=== PATIENT | female | born 1935 | race Caucasian/White ===

== ENCOUNTER → 2016-12-02 | Outpatient (CLI) | payer MEDICARE, BC ==
--- NOTE | 2016-12-02 11:05 | MM ---
Reason for exam: additional evaluation requested from prior study. Last mammogram was performed 1 year ago. History: Patient is postmenopausal, has history of other cancer at age 78, and has history of breast cancer at age 77. Mastectomy of the right breast, May 24, 2013. Malignant right mammotome panel of the right breast, May 15, 2013. Taking antineoplastic for 4 years beginning at age 77. Physical Findings: Nurse did not find any significant physical abnormalities on exam. MG 3D Diag Mammo W/Cad LT CC and MLO view(s) were taken of the left breast. Prior study comparison: November 24, 2015, left breast MG 3d diag mammo w/cad LT. November 18, 2014, left breast MG diagnostic mammo LT w CAD. There are scattered fibroglandular densities. Finding: There are typically benign calcifications in the left breast. No significant changes in finding since November 24, 2015 and November 18, 2014. These results were verbally communicated with the patient and result sheet given to the patient on 12/02/16. ASSESSMENT: Benign, BI-RAD 2 RECOMMENDATION: Follow-up diagnostic mammogram of the left breast in 1 year.
== END | disposition home or self-care (01) ==
LOC: RADMAMWWP 10:12
PROVIDERS: ATTEND Surgery
DX: Z08 Encounter for follow-up examination after completed treatment for malignant neoplasm (principal); Z85.3 Personal history of malignant neoplasm of breast
CPT/HCPCS: G0206; G0279

== ENCOUNTER → 2017-05-29 | Outpatient (CLI) | payer MEDICARE, BC ==
--- NOTE | 2017-05-29 16:24 | BD ---
EXAMINATION TYPE: MG DEXA axial skeleton. DATE OF EXAM: 05/29/2017 CLINICAL HISTORY: 81-year-old female osteopenia and history of breast cancer Height: 66.50 Weight: 255 FRAX RISK QUESTIONS: Alcohol (3 or more units per day): no Family History (Parent hip fracture): no Glucocorticoids (More than 3mos): no (Ex: prednisone, prednisolone, methylprednisolone, dexamethasone, and hydrocortisone). History of Fracture in Adulthood: no Secondary Osteoporosis: 1. Type 1 Diabetes: no 2. Hyperthyroidism: no 3. Menopause before 45: no, age 48 4. Malnutrition: no 5. Chronic liver disease: no Rheumatoid Arthritis: no Current Tobacco Use: no RISK FACTORS HISTORY OF: Surgery to Spine: yes When: 1991; 3-4-5 lumbar region Family History of Osteoporosis: no Active: somewhat-uses walker Diet low in dairy products/other sources of calcium: no Postmenopausal woman: yes Take estrogen and/or progesterone medications: yes How long: antineoplastic over 4 years Lost more than 2 inches in height since high school: yes Frequent falls: no Poor Health: fair Hyperparathyroidism: no Adrenal Insufficiency: no MEDICATIONS: Prednisone or other steroids: no Thyroid Medications: yes Which medication: Mylan/Levothyroid How Long: about 20 years Osteoporosis Medications: no Additional Medications: Atenol, Simvastatin, amastrozole, aspirin, vitamin C, glucosamine, vit D, Ran tidine Additional History: Breast CA chemo; age 77; bladder CA, osteoarthritis, carpal tunnel surgery bot h wrists EXAM MEASUREMENTS: Bone mineral densitometry was performed using the [employer]. Bone mineral density NOT measured about the Lumbar spine due to previous back surgery Bone mineral density about the R hip (g/cm2): 0.918 Bone mineral density about the L hip (g/cm2): 0.956 T Score values are as follows: -----R Neck: -0.9 -----L Neck: -0.6 -----R Total: -1.0 -----L Total: -0.9 Bone mineral density has: Increased 1.4% since study of: 05/19/2015 IMPRESSION: Normal (Values between +1 and -1 indicate normal bone mass) as indicated by T score values in the hip s. Note that measurements border on osteopenia at both sides. Measurements not taken of the lumbar spine due to prior surgery. Consider repeating this study in 5 years or sooner if there is some new clinical indication. NOTE: T-SCORE=SD OF THE YOUNG ADULT MEAN.
== END | disposition home or self-care (01) ==
LOC: RADBDWWP 09:21
PROVIDERS: ATTEND Internal Medicine Hematology & Oncology
DX: M85.80 Other specified disorders of bone density and structure, unspecified site (principal); C50.411 Malignant neoplasm of upper-outer quadrant of right female breast; Z79.890 Hormone replacement therapy
CPT/HCPCS: 77080

== ENCOUNTER → 2017-06-15 | Outpatient (CLI) | payer MEDICARE, BC ==
--- NOTE | 2017-06-15 11:19 | FL ---
EXAMINATION TYPE: FL barium swallow DATE OF EXAM: 06/15/2017 CLINICAL HISTORY: Gastroesophageal reflux TECHNIQUE: A double contrast esophagram is performed utilizing air and barium. A total of 32 second s of fluoroscopic time was utilized during procedure. COMPARISON: None FINDINGS: Barium was swallowed into the esophagus without delay. Esophageal peristalsis and motility was normal. There is a small hiatal hernia and tertiary contractions of the distal esophagus. Mild ga stroesophageal reflux noted. Mild fold thickening at the level the GE junction. IMPRESSION: 1. No evidence of obstruction. Mild gastroesophageal reflux with dysmotility noted. There is mild fol d thickening of the distal esophagus which could be associated with mild esophagitis. Correlate with direct visualization as clinically warranted.
--- NOTE | 2017-06-15 11:41 | XR ---
EXAMINATION TYPE: XR chest 2V DATE OF EXAM: 06/15/2017 COMPARISON: 12/09/2015 HISTORY: History of breast cancer and osteopenia TECHNIQUE: Frontal and lateral views of the chest are obtained. FINDINGS: There is no focal air space opacity, pleural effusion, or pneumothorax seen. The cardiac silhouette size is within normal limits. The osseous structures are intact. Right breast surgical c lips are incidentally identified. Moderate degenerative changes of thoracic spine are seen. IMPRESSION: No acute cardiopulmonary process.
== END | disposition home or self-care (01) ==
LOC: RADFLMAIN 10:34
PROVIDERS: ATTEND Family Medicine
DX: K21.9 Gastro-esophageal reflux disease without esophagitis (principal); K22.8 Other specified diseases of esophagus; J41.0 Simple chronic bronchitis
CPT/HCPCS: 71046; 74220

== ENCOUNTER → 2017-12-04 | Outpatient (CLI) | payer MEDICARE, BC ==
--- NOTE | 2017-12-04 10:53 | MM ---
Reason for exam: additional evaluation requested from prior study. Last mammogram was performed 1 year ago. History: Patient is postmenopausal, has history of other cancer at age 78, and has history of breast cancer at age 77. Mastectomy of the right breast, May 24, 2013. Malignant right mammotome panel of the right breast, May 15, 2013. Taking antineoplastic for 4 years beginning at age 77. Physical Findings: Nurse did not find any significant physical abnormalities on exam. MG 3D Diag Mammo W/Cad LT CC and MLO view(s) were taken of the left breast. Prior study comparison: December 02, 2016, left breast MG 3d diag mammo w/cad LT. November 24, 2015, left breast MG 3d diag mammo w/cad LT. There are scattered fibroglandular densities. Benign calcifications. There is no discrete abnormality. No significant new findings when compared with previous films. These results were verbally communicated with the patient and result sheet given to the patient on 12/04/17. ASSESSMENT: Benign, BI-RAD 2 RECOMMENDATION: Follow-up diagnostic mammogram of the left breast in 1 year.
== END | disposition home or self-care (01) ==
LOC: RADMAMWWP 10:08
PROVIDERS: ATTEND Internal Medicine Hematology & Oncology
DX: Z08 Encounter for follow-up examination after completed treatment for malignant neoplasm (principal); Z85.3 Personal history of malignant neoplasm of breast
CPT/HCPCS: 77065; G0279; 77061

== ENCOUNTER → 2017-12-20 | Outpatient (CLI) | payer MEDICARE, BC ==
[~2017-12-20] MED LIST: REGADENOSON 0.4 MG/5 ML SYRINGE IV ONE
--- NOTE | 2017-12-20 10:55 | NM ---
EXAMINATION TYPE: NM stress lexiscan cardiolite DATE OF EXAM: 12/20/2017 COMPARISON: NONE HISTORY: Precordial chest pain and abnormal EKG. TECHNIQUE: After the intravenous administration of 10.08 mCi Tc 99m Sestamibi - Cardiolite resting S PECT images acquired 45 minutes post injection. The patient received 0.4mg Lexiscan, 23.4 mCi Tc 99m Sestamibi - Stress images obtained [address] injection FINDINGS: Review of stress and rest SPECT images demonstrates small area of decreased perfusion on stress imagi ng involving the anteroseptal wall. Stress-induced ischemia is not excluded. Fixed defect apical infe rior wall. Gated analysis shows normal wall motion with an estimated left ventricular ejection fracti on of 42 %. IMPRESSION: I cannot exclude a small area of stress-induced ischemia as discussed above.
--- NOTE | 2017-12-20 11:04 | EST ---
EXERCISE STRESS DATE OF SERVICE: 12/20/2017 AGE: 82 SEX: Female HT: 68" WT: 252 pounds PROTOCOL: Lexiscan Cardiolite STAGE: DURATION OF EXERCISE: HEART RATE REST: 59 BLOOD PRESSURE REST: 130/96 MAXIMUM HEART RATE ACHIEVED: 84 MAXIMUM BLOOD PRESSURE: 168/67 85% MPHR: 119 100% MPHR: 140 METS: INDICATIONS: Abnormal EKG. CLINICAL INFORMATION: Baseline EKG shows sinus rhythm with left bundle branch block. The patient was given intravenous Lexiscan as per protocol. Did not have chest pain or diagnostic ST-segment depression. CONCLUSIONS: 1. Inconclusive EKG part of the stress test due to left bundle branch block. 2. Cardiolite portion of the stress test will be reported separately. MMODL / IJN: [id number] /
== END | disposition home or self-care (01) ==
LOC: RADNMMAIN 07:47
PROVIDERS: ATTEND Internal Medicine Cardiovascular Disease
DX: I44.7 Left bundle-branch block, unspecified (principal); I25.110 Atherosclerotic heart disease of native coronary artery with unstable angina pectoris; I10 Essential (primary) hypertension; E78.2 Mixed hyperlipidemia
CPT/HCPCS: 93017; 78452; A9500; J2785

== ENCOUNTER → 2018-01-25 | Outpatient (CLI) | payer MEDICARE, BC ==
--- NOTE | 2018-01-26 08:41 | CT ---
EXAMINATION TYPE: CT urogram wo/w con DATE OF EXAM: 01/25/2018 COMPARISON: HISTORY: Follow up bladder cancer. CT DLP: 4094.4 mGycm Automated exposure control for dose reduction was used. CONTRAST: Performed with IV Contrast, patient injected with 80 mL of Isovue 370. FINDINGS: CT sections are within the posterior lung bases which are clear. Coronary artery calcifications prese nt. Vascular calcifications in the aorta Liver and spleen appear normal without masses or cysts. The pancreas is unremarkable. Adrenal glands are normal. Vascular calcifications within the abdominal aorta. Inferior vena cava is normal. Gallbla dder is surgically absent. Urostomy site is in the right lower quadrant. Loops of bowel without oral contrast appear unremarkable. Diverticular changes are noted within the s igmoid colon. Patient has had a cystectomy. Uterus and ovaries are not identified. No suspicious acut e osseous abnormality is evident. Sacroiliac joint degenerative changes are present. Facet degenerati ve changes are within the lumbar spine and disc bulging can be contributing to spinal canal stenosis at the L4-5 level and L3-4 level. Kidneys and the cortical phase appear normal without masses cysts or hydronephrosis. An extrarenal pe lvis is present on the left. Mild hydroureter is present. Delayed images were obtained through the kidneys and ureters. The ureters are prominent with contrast . Urostomy surgery on the bowel loop is evident. There is some tortuosity of the right ureter. The ur eters to the neobladder otherwise are unremarkable. No stenosis is evident. Three-D reconstructed images performed separately on the [employer] computer by the technologist are pres ented. IMPRESSION: 1. MILD PROMINENCE OF THE URETERS. NO STENOSIS OF THE URETERS IS EVIDENT. 2. NO SUSPICIOUS CHANGES TO SUGGEST METASTATIC URINARY BLADDER CANCER.
== END | disposition home or self-care (01) ==
LOC: RADCTMAIN 12:52
PROVIDERS: ATTEND Urology
DX: D49.4 Neoplasm of unspecified behavior of bladder (principal); Z90.6 Acquired absence of other parts of urinary tract
CPT/HCPCS: 82565; 84520; 74178; 36415; 74400; Q9967

== ENCOUNTER → 2018-04-26 | Outpatient (CLI) | payer MEDICARE, BC | LOC: LABWHC1 10:03 | PROVIDERS: ATTEND Urology | DX: N28.9 Disorder of kidney and ureter, unspecified (principal) | CPT/HCPCS: 36415; 82565; 84520 ==

== ENCOUNTER → 2018-05-10 | Outpatient (CLI) | payer MEDICARE, BC ==
--- NOTE | 2018-05-10 12:28 | CT ---
EXAMINATION TYPE: CT urogram wo/w con DATE OF EXAM: 05/10/2018 COMPARISON: 03/28/2017 HISTORY: 82 year-old female history of bladder cancer. Blood in urine bag improved after antibiotics. TECHNIQUE: Contiguous axial scanning of the abdomen and pelvis performed without and with IV Contrast , patient injected with 80 mL of Isovue 370. Delayed images through the kidneys and bladder were obta ined. Coronal/sagittal reconstructions performed. 3-D reconstructions generated on a dedicated [employer] workstation. CT DLP: 3585.7 mGycm Automated exposure control for dose reduction was used. FINDINGS: Heart normal size without pericardial effusion. Dense mitral annular calcifications are demonstrated. Small amount of retained fluid within the distal esophagus with a tiny hiatal hernia. Lung bases clear without pleural effusion. Ectatic lower descending thoracic aorta centimeters. Mild to moderate atherosclerotic calcifications infrarenal abdominal aorta without aneurysm. No focal liver lesion or biliary ductal dilatation. Portal venous system is patent. Cholecystectomy clips. Adrenal glands, spleen, atrophic pancreas show no gross abnormality. There is symmetric uptake and excretion of contrast from both kidneys without any suspicious renal le pranay. The bilateral renal collecting systems and ureters remain patulous. The proximal ureters are tortuous with a couple hairpin turns on the right and one on the left. At the left mid ureter, there is a 1.7 cm segment of relative caliber narrowing. At is right mid ureter, there is a 1.5 cm length of relative caliber narrowing. Both of these areas are depicted on the 3-D reconstructions. No obvious abnormal surrounding soft tis ramila thickening is identified. A mid anterior lower abdominal ileal conduit is demonstrated with a right lower quadrant urostomy. Sm all parastomal hernia measuring 5.6 cm wide, unchanged, containing a nonobstructed ileal loop of the urostomy. At the right ureteral anastomosis, there may be mild narrowing, refer to series 26 image 40. Contrast partially opacifies the anastomotic ileal loop. No dilated small bowel, free fluid, or free air. No mesenteric or retroperitoneal lymphadenopathy. Some nonspecific mildly prominent fluid-filled small bowel loops in the mid to lower abdomen. Mild stool burden. Mid to distal sigmoid diverticulosis. No pericolonic inflammatory change. Mildly patulous bilateral inguinal canals. Patient is status post cystectomy. No suspicious pelvic ma ss or pelvic lymphadenopathy seen. Evaluation of the renal collecting systems Bones: Degenerative changes at the pubic symphysis, hips, advanced degenerative changes throughout th e lumbar spine. Laminectomy change at L4-L5 and grade 1 anterolisthesis at L3-L4. 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 IMPRESSION: 1. STATUS POST CYSTECTOMY WITH MID LOWER ABDOMINAL ILEAL CONDUIT WITH RIGHT LOWER QUADRANT UROSTOMY R EDEMONSTRATED. 2. SIMILAR PATULOUS BILATERAL RENAL COLLECTING SYSTEMS AND BOTH URETERS WITH APPARENT MID URETERIC ST ENOSES FOR A LENGTH OF 1.5 and 1.7 CM ON THE RIGHT AND LEFT SIDES, RESPECTIVELY (WELL DEPICTED ON THE ROTATIONAL 3-D RECONSTRUCTIONS). THIS IS MORE PRONOUNCED COMPARED TO 01/25/2018. THE BILATERAL U RETERS BEYOND THE STENOSES ARE ALSO PATULOUS AND THERE MAY BE A MILD ANASTOMOTIC STENOSIS OF THE DIST AL RIGHT URETER (SERIES 26 IMAGE 40). NO SUSPICIOUS UROTHELIAL LESION OR FILLING DEFECT IDENTIFIED. 3. 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 4. MID TO DISTAL SIGMOID DIVERTICULOSIS. ADVANCED DEGENERATIVE CHANGES THROUGHOUT THE LUMBAR SPINE.
== END | disposition home or self-care (01) ==
LOC: RADCTMAIN 08:27
PROVIDERS: ATTEND Urology
DX: Z08 Encounter for follow-up examination after completed treatment for malignant neoplasm (principal); K57.30 Diverticulosis of large intestine without perforation or abscess without bleeding; K43.5 Parastomal hernia without obstruction or gangrene; Q62.10 Congenital occlusion of ureter, unspecified; R31.0 Gross hematuria; Z90.6 Acquired absence of other parts of urinary tract; Z93.6 Other artificial openings of urinary tract status; Z85.51 Personal history of malignant neoplasm of bladder
CPT/HCPCS: 74178; 36415; 74400; Q9967

== ENCOUNTER → 2018-12-11 | Outpatient (CLI) | payer MEDICARE, BC ==
--- NOTE | 2018-12-11 12:59 | MM ---
Reason for exam: additional evaluation requested from prior study. Last mammogram was performed 1 year ago. History: Patient is postmenopausal, has history of other cancer at age 78, and has history of breast cancer at age 77. Mastectomy of the right breast, May 24, 2013. Malignant right mammotome panel of the right breast, May 15, 2013. Taking antineoplastic for 4 years beginning at age 77. Physical Findings: Nurse Summary: 3cm nodule in axilla (nurse kp). MG 3D Diag Mammo W/Cad LT CC, MLO, and LM view(s) were taken of the left breast. Prior study comparison: December 04, 2017, left breast MG 3d diag mammo w/cad LT. December 02, 2016, left breast MG 3d diag mammo w/cad LT. The breast tissue is heterogeneously dense. This may lower the sensitivity of mammography. Benign appearing calcifications in the left breast. No suspicious abnormality. These results were verbally communicated with the patient and result sheet given to the patient on 12/11/18. ASSESSMENT: Incomplete: need additional imaging evaluation, BI-RAD 0 RECOMMENDATION: Ultrasound. (right axillary palpable)
--- NOTE | 2018-12-11 13:01 | USB ---
Reason for exam: additional evaluation requested from abnormal screening. History: Patient is postmenopausal, has history of other cancer at age 78, and has history of breast cancer at age 77. Mastectomy of the right breast, May 24, 2013. Malignant right mammotome panel of the right breast, May 15, 2013. Taking antineoplastic for 4 years beginning at age 77. US Breast Axilla RT ight axillary ultrasound demonstrates a 0.6 x 0.4 x 0.4cm mixed lesion at the axilla appears as a morphologically normal lymph node, precautionary 6 month follow up right axillary ultrasound. These results were verbally communicated with the patient and result sheet given to the patient on 12/11/18. ASSESSMENT: Probably benign, BI-RAD 3 RECOMMENDATION: Ultrasound of the right breast in 6 months.
== END ==
LOC: RADMAMWWP 10:55
PROVIDERS: ATTEND Internal Medicine Hematology & Oncology
DX: N63.10 Unspecified lump in the right breast, unspecified quadrant (principal); R92.8 Other abnormal and inconclusive findings on diagnostic imaging of breast; Z85.3 Personal history of malignant neoplasm of breast
CPT/HCPCS: 77065; 76642; G0279; 77061

== ENCOUNTER → 2019-08-27 | Outpatient (CLI) | payer MEDICARE, BC ==
--- NOTE | 2019-08-27 18:52 | BD ---
EXAMINATION TYPE: Axial Bone Density DATE OF EXAM: 08/27/2019 COMPARISON: NONE CLINICAL HISTORY: Height: 66 Weight: 238.0 FRAX RISK QUESTIONS: Alcohol (3 or more units per day): no Family History (Parent hip fracture): no Glucocorticoids (More than 3mos): no (Ex: prednisone, prednisolone, methylprednisolone, dexamethasone, and hydrocortisone). History of Fracture in Adulthood: no Secondary Osteoporosis: 1. Type 1 Diabetes: no 2. Hyperthyroidism: no 3. Menopause before 45: no 4. Malnutrition: no 5. Chronic liver disease: no Rheumatoid Arthritis: no Current Tobacco Use: no RISK FACTORS HISTORY OF: Surgery to Spine/Hip(right/left)/Wrist (right/left): lumbar spine When: 1991/ bilateral wrist -carpal tunnel surgery Family History of Osteoporosis: no Active: no Diet low in dairy products/other sources of calcium: no Postmenopausal woman: age 48 Lost more than 2 inches in height since high school: yes MEDICATIONS: atenolol, simvastatin, amastrozole, aspirin, vitamins Thyroid Medications: levothyroxine How Lon years Additional History: EXAM MEASUREMENTS: Bone mineral densitometry was performed using the [employer]. Bone mineral density about the R hip (g/cm2): 0.868 Bone mineral density about the L hip (g/cm2): 0.898 T Score values are as follows: -----R Neck: -1.2 -----L Neck: -1.0 -----R Total: -1.1 -----L Total: -1.2 Bone mineral density has: decreased -3.0 % since study of: 4. IMPRESSION: Osteopenia (T Score between -2.5 and -1). There is slightly increased risk of fracture and the patient may be considered for treatment. Re-Screen 2-5 years. NOTE: T-SCORE=SD OF THE YOUNG ADULT MEAN.
== END | disposition home or self-care (01) ==
LOC: RADBDWWP 10:28
PROVIDERS: ATTEND Internal Medicine Hematology & Oncology
DX: M85.80 Other specified disorders of bone density and structure, unspecified site (principal); C50.411 Malignant neoplasm of upper-outer quadrant of right female breast; Z79.890 Hormone replacement therapy
CPT/HCPCS: 77080

== ENCOUNTER → 2019-08-27 | Outpatient (CLI) | payer MEDICARE, BC ==
--- NOTE | 2019-08-27 12:20 | MM ---
Reason for exam: follow-up at short interval from prior study. Last mammogram was performed 9 months ago. History: Patient is postmenopausal, has history of other cancer at age 78, and has history of breast cancer at age 77. Mastectomy of the right breast, May 24, 2013. Malignant right mammotome panel of the right breast, May 15, 2013. Taking antineoplastic for 4 years beginning at age 77. Physical Findings: Nurse Summary: 1 x 1.5cm right adenopathy (nurse ts). MG 3D Diag Mammo W/Cad LT CC and MLO view(s) were taken of the left breast. Prior study comparison: December 11, 2018, left breast MG 3d diag mammo w/cad LT. December 04, 2017, left breast MG 3d diag mammo w/cad LT. The breast tissue is heterogeneously dense. This may lower the sensitivity of mammography. No significant new findings when compared with previous films. These results were verbally communicated with the patient and result sheet given to the patient on 08/27/19. ASSESSMENT: Benign, BI-RAD 2 RECOMMENDATION: Follow-up diagnostic mammogram of the left breast in 1 year.
--- NOTE | 2019-08-27 12:22 | USB ---
Reason for exam: follow-up at short interval from prior study. History: Patient is postmenopausal, has history of other cancer at age 78, and has history of breast cancer at age 77. Mastectomy of the right breast, May 24, 2013. Malignant right mammotome panel of the right breast, May 15, 2013. Taking antineoplastic for 4 years beginning at age 77. US Breast Axilla RT Right limited breast ultrasound including focal area of concern, retroareolar and axilla demonstrates a 4 x 5 x 4mm mixed hypoechoic area, stable in size at the axilla BB. These results were verbally communicated with the patient and result sheet given to the patient on 08/27/19. ASSESSMENT: Probably benign, BI-RAD 3 RECOMMENDATION: Ultrasound of the right breast in 3 months. (Axilla 3-6 months. Consider PET/CT)
== END | disposition home or self-care (01) ==
LOC: RADMAMWWP 10:32
PROVIDERS: ATTEND Internal Medicine Hematology & Oncology
DX: Z08 Encounter for follow-up examination after completed treatment for malignant neoplasm (principal); Z85.3 Personal history of malignant neoplasm of breast
CPT/HCPCS: 77065; 76642; G0279; 77061

== ENCOUNTER 2019-09-21 14:59 | Observation (INO) | payer MEDICARE, BC ==
[2019-09-21] MEDS ORDERED: SODIUM CHLORIDE 0.9% 1,000 ML IV STA (15:01)
--- NOTE | 2019-09-21 15:02 | ED ---
Syncope HPI - General Stated Complaint: Syncope Time Seen by Provider: 09/21/19 15:01 Source: RN notes reviewed, old records reviewed Limitations: no limitations - History of Present Illness Initial Comments: This is an 82-year-old female DF for weakness and a syncopal event today. Patient herself is feels weak is able to ambulate with feels fatigued feels like she a pass out change of position no recent nausea vomiting or diarrhea no headache chest pain no shortness of breath or abdominal pain MD Complaint: loss of consciousness -: hour(s) Prodromal Symptoms: none -: second(s) Witnessed: no Injuries Sustained Associated with Event: None Current Symptoms: back to baseline, weakness History: previous syncopal episode Context: during exertion Treatments Prior to Arrival: none - Related Data Home Medications Medication Instructions Recorded Confirmed Ascorbic Acid [Vitamin C] 500 mg PO DAILY 07/30/13 07/31/13 Aspirin 325 mg PO DAILY 07/30/13 07/31/13 Bisoprolol-Hctz 10-6.25 mg [Ziac 1 each PO DAILY 07/30/13 07/31/13 10-6.25 MG] Calcium (Unknown Dose) 1,500 mg DAILY 07/30/13 07/31/13 Cholecalciferol [Vitamin D3] 1,000 unit PO BID 07/30/13 07/31/13 Fiber (Unknown Dose) 2 tab PO DAILY 07/30/13 07/31/13 Glucosamine(Unknown Dose) 1,500 mg DAILY 07/30/13 07/31/13 Levothyroid 0.075 mg DAILY 07/30/13 07/31/13 Omeprazole [PriLOSEC] 20 mg PO DAILY PRN 07/30/13 07/31/13 Simvastatin [Zocor] 40 mg PO HS 07/30/13 07/31/13 cloNIDine HCL [Catapres] 0.1 mg PO HS 07/30/13 07/31/13 Allergies Allergy/AdvReac Type Severity Reaction Status Date / Time No Known Allergies Allergy Verified 09/21/19 17:24 Review of Systems ROS Statement: Those systems with pertinent positive or pertinent negative responses have been documented in the HPI. ROS Other: All systems not noted in ROS Statement are negative. Past Medical History Past Medical History: Cancer, GERD/Reflux, Hyperlipidemia, Hypertension, Thyroid Disorder Additional Past Medical History / Comment(s): HEART MURMUR, H. PYLORI, CA BREAST AND BLADDER, RECEIVING CHEMOTHERAPY FOR BLADDER CANCER History of Any Multi-Drug Resistant Organisms: None Reported Past Surgical History: Bladder Surgery, Breast Surgery, Cholecystectomy, Joint Replacement, Orthopedic Surgery, Tonsillectomy Additional Past Surgical History / Comment(s): RT CARPAL TUNNEL, LEFT KNEE REPLACEMENT, ARTHROSCOPY RT KNEE, BACK SURGERY (3,4,5), BLADDER POLYPS, OVARY REMOVED, RT MASTECTOMY (MAY 2013) Additional Past Anesthesia/Blood Transfusion Reaction / Comment(s): "FACE HOT" Past Psychological History: No Psychological Hx Reported Past Alcohol Use History: None Reported Past Drug Use History: None Reported - Past Family History Father Family Medical History: Cancer Additional Family Medical History / Comment(s): COLON Mother Family Medical History: Cancer Additional Family Medical History / Comment(s): COLON AND KIDNEY CA General Exam General appearance: alert, in no apparent distress Head exam: Present: atraumatic, normocephalic, normal inspection Eye exam: Present: normal appearance, PERRL, EOMI. Absent: scleral icterus, conjunctival injection, periorbital swelling ENT exam: Present: normal exam, mucous membranes moist Neck exam: Present: normal inspection. Absent: tenderness, meningismus, lymphadenopathy Respiratory exam: Present: normal lung sounds bilaterally. Absent: respiratory distress, wheezes, rales, rhonchi, stridor Cardiovascular Exam: Present: regular rate, normal rhythm, normal heart sounds. Absent: systolic murmur, diastolic murmur, rubs, gallop, clicks GI/Abdominal exam: Present: soft, normal bowel sounds. Absent: distended, tenderness, guarding, rebound, rigid Extremities exam: Present: normal inspection, full ROM, normal capillary refill. Absent: tenderness, pedal edema, joint swelling, calf tenderness Back exam: Present: normal inspection Neurological exam: Present: alert, oriented X3, CN II-XII intact Psychiatric exam: Present: normal affect, normal mood Skin exam: Present: warm, dry, intact, normal color. Absent: rash Course Vital Signs 09/21/19 15:01 Temperature 97.9 F Pulse Rate 64 Respiratory 19 Rate Blood Pressure 153/81 O2 Sat by Pulse 98 Oximetry - Reevaluation(s) Reevaluation #1: 09/21/19 17:27 Medical records reviewed Reevaluation #2: 09/21/19 17:27 No recurrent syncope - Consultations Consultation #1: spoke with Dr. Fuchs agrees to admit this patient EKG Findings - EKG Comments: EKG Findings:: EKG shows sinus a vesicular pO2 52 QRS 170 QTC 47 Medical Decision Making - Medical Decision Making 84 female DF for evaluation patient to the ER for evaluation presents today for evaluation of weakness and syncope significant urinary tract infection patient to be admitted - Lab Data Result diagrams: 09/21/19 16:15 09/21/19 16:15 Lab Results 09/21/19 09/21/19 09/21/19 Range/Units 16:15 16:15 16:15 WBC 14.2 H (3.8-10.6) k/uL RBC 4.83 (3.80-5.40) m/uL Hgb 15.2 (11.4-16.0) gm/dL Hct 46.3 H (34.0-46.0) % MCV 95.8 (80.0-100.0) fL MCH 31.5 (25.0-35.0) pg MCHC 32.9 (31.0-37.0) g/dL RDW 12.6 (11.5-15.5) % Plt Count 221 (150-450) k/uL Neutrophils % 87 % Lymphocytes % 5 % Monocytes % 7 % Eosinophils % 1 % Basophils % 0 % Neutrophils # 12.2 H (1.3-7.7) k/uL Lymphocytes # 0.7 L (1.0-4.8) k/uL Monocytes # 1.0 (0-1.0) k/uL Eosinophils # 0.2 (0-0.7) k/uL Basophils # 0.0 (0-0.2) k/uL Sodium 131 L (137-145) mmol/L Potassium 4.7 (3.5-5.1) mmol/L Chloride 101 (98-107) mmol/L Carbon Dioxide 20 L (22-30) mmol/L Anion Gap 10 mmol/L BUN 25 H (7-17) mg/dL Creatinine 0.98 (0.52-1.04) mg/dL Est GFR (CKD-EPI)AfAm 62 (>60 ml/min/1.73 sqM) Est GFR (CKD-EPI)NonAf 54 (>60 ml/min/1.73 sqM) Glucose 120 H (74-99) mg/dL Calcium 10.0 (8.4-10.2) mg/dL Phosphorus 3.3 (2.5-4.5) mg/dL Magnesium 2.0 (1.6-2.3) mg/dL Total Bilirubin 1.1 (0.2-1.3) mg/dL AST 33 (14-36) U/L ALT 16 (4-34) U/L Alkaline Phosphatase 124 (38-126) U/L Creatine Kinase 51 (30-135) U/L Troponin I (0.000-0.034) ng/mL Total Protein 7.5 (6.3-8.2) g/dL Albumin 4.5 (3.5-5.0) g/dL Urine Color Yellow Urine Appearance Cloudy H (Clear) Urine pH 7.0 (5.0-8.0) Ur Specific [place] 1.014 (1.001-1.035) Urine Protein Trace H (Negative) Urine Glucose (UA) Negative (Negative) Urine Ketones Negative (Negative) Urine Blood Small H (Negative) Urine Nitrite Positive H (Negative) Urine Bilirubin Negative (Negative) Urine Urobilinogen <2.0 (<2.0) mg/dL Ur Leukocyte Esterase Large H (Negative) Urine RBC 12 H (0-5) /hpf Urine WBC 76 H (0-5) /hpf Amorphous Sediment Few H (None) /hpf Urine Bacteria Rare H (None) /hpf 09/21/19 Range/Units 16:15 WBC (3.8-10.6) k/uL RBC (3.80-5.40) m/uL Hgb (11.4-16.0) gm/dL Hct (34.0-46.0) % MCV (80.0-100.0) fL MCH (25.0-35.0) pg MCHC (31.0-37.0) g/dL RDW (11.5-15.5) % Plt Count (150-450) k/uL Neutrophils % % Lymphocytes % % Monocytes % % Eosinophils % % Basophils % % Neutrophils # (1.3-7.7) k/uL Lymphocytes # (1.0-4.8) k/uL Monocytes # (0-1.0) k/uL Eosinophils # (0-0.7) k/uL Basophils # (0-0.2) k/uL Sodium (137-145) mmol/L Potassium (3.5-5.1) mmol/L Chloride (98-107) mmol/L Carbon Dioxide (22-30) mmol/L Anion Gap mmol/L BUN (7-17) mg/dL Creatinine (0.52-1.04) mg/dL Est GFR (CKD-EPI)AfAm (>60 ml/min/1.73 sqM) Est GFR (CKD-EPI)NonAf (>60 ml/min/1.73 sqM) Glucose (74-99) mg/dL Calcium (8.4-10.2) mg/dL Phosphorus (2.5-4.5) mg/dL Magnesium (1.6-2.3) mg/dL Total Bilirubin (0.2-1.3) mg/dL AST (14-36) U/L ALT (4-34) U/L Alkaline Phosphatase (38-126) U/L Creatine Kinase (30-135) U/L Troponin I <0.012 (0.000-0.034) ng/mL Total Protein (6.3-8.2) g/dL Albumin (3.5-5.0) g/dL Urine Color Urine Appearance (Clear) Urine pH (5.0-8.0) Ur Specific [place] (1.001-1.035) Urine Protein (Negative) Urine Glucose (UA) (Negative) Urine Ketones (Negative) Urine Blood (Negative) Urine Nitrite (Negative) Urine Bilirubin (Negative) Urine Urobilinogen (<2.0) mg/dL Ur Leukocyte Esterase (Negative) Urine RBC (0-5) /hpf Urine WBC (0-5) /hpf Amorphous Sediment (None) /hpf Urine Bacteria (None) /hpf Disposition Clinical Impression: Syncope, Weakness, UTI (urinary tract infection), Dehydration Disposition: ADMITTED IP TO THIS HOSP Condition: Fair Is patient prescribed a controlled substance at d/c from ED?: No Referrals: Amanda Barahona MD [Primary Care Provider] - 1-2 days
[2019-09-21 16:36] LABS: Amorphous Sediment,Urine Few /hpf; Appearance,Urine Cloudy (Clear); Bacteria,Urine Rare /hpf; Bilirubin,Urine Negative (Negative); Blood,Urine Small (Negative); Color,Urine Yellow; Glucose,Urine (UA) Negative (Negative); Ketones,Urine Negative (Negative); Leukocyte Esterase,Urine Large (Negative); Nitrite,Urine Positive (Negative); Protein,Urine Trace (Negative); RBC,Urine 12 /hpf (0-5); Specific Gravity,Urine 1.014 (1.001-1.035); Urobilinogen,Urine <2.0 mg/dL (<2.0); WBC,Urine 76 /hpf (0-5)
[2019-09-21 16:47] LABS: Basophils % (A) 0 %; Eosinophils # (A) 0.2 k/uL (0-0.7); Eosinophils % (A) 1 %; HCT 46.3 % (34.0-46.0); HGB 15.2 gm/dL (11.4-16.0); Lymphocytes # (A) 0.7 k/uL (1.0-4.8); Lymphocytes % (A) 5 %; MCH 31.5 pg (25.0-35.0); MCHC 32.9 g/dL (31.0-37.0); MCV 95.8 fL (80.0-100.0); Mean Platelet Volume 9.2; Monocytes % (A) 7 %; Neutrophils # (A) 12.2 k/uL (1.3-7.7); Neutrophils % (A) 87 %; Platelet Count 221 k/uL (150-450); RBC 4.83 m/uL (3.80-5.40); RDW 12.6 % (11.5-15.5); WBC 14.2 k/uL (3.8-10.6)
[2019-09-21 16:49] LABS: Albumin 4.5 g/dL (3.5-5.0); Phosphorus 3.3 mg/dL (2.5-4.5); Potassium 4.7 mmol/L (3.5-5.1); Total Bilirubin 1.1 mg/dL (0.2-1.3); Total Protein 7.5 g/dL (6.3-8.2)
[2019-09-21] MEDS ORDERED: SODIUM CHLORIDE 0.9% 1,000 ML IV ONE (17:21)
[2019-09-21 17:36] LABS: INR 0.9 (<1.2)
[2019-09-21 17:37] LABS: D-Dimer 0.67 mg/L FEU (<0.60); Partial Thromboplastin Time 24.6 sec (22.0-30.0); Prothrombin Time 9.9 sec (9.0-12.0)
--- NOTE | 2019-09-21 19:08 | CT ---
EXAMINATION TYPE: CT angio chest DATE OF EXAM: 09/21/2019 COMPARISON: None HISTORY: Syncopal episode, elevated d-dimer. CT DLP: 448.8 mGycm Automated exposure control for dose reduction was used. CONTRAST: Performed with IV Contrast, patient injected with 80 mL of Isovue 370. There are 3-D post processed images. The lungs are clear of consolidation. There is no evidence of a pulmonary mass. There is no pleural e ffusion. There is no mediastinal adenopathy. There are no hilar masses. Thoracic aorta appears intact . The ascending aorta measures 3.7 cm. There is no aneurysm or dissection. Heart size is normal. Ther e is no pericardial effusion. There is normal contrast opacification of the pulmonary arteries. There are no filling defects. There is degenerative spurring throughout the thoracic spine. There is no compression fracture. IMPRESSION: No evidence of pulmonary embolism. Negative exam.
[2019-09-21] MEDS ORDERED: NITROGLYCERIN SL TABS 0.4 MG TAB SUBLINGUAL PRN (21:00)
[2019-09-21] MEDS ORDERED: atenoloL 50 MG TAB PO SCH (21:00)
[2019-09-21] MEDS: ATORVASTATIN 40 MG TAB PO SCH (22:34)
[2019-09-21] MEDS: CHOLECALCIFEROL 1,000 UNIT TAB PO SCH (22:34)
[2019-09-21] MEDS: ONDANSETRON 4 MG/2 ML VIAL IVP PRN (22:36)
[2019-09-22] MEDS: LEVOTHYROXINE 75 MCG TAB PO SCH (05:58)
[2019-09-22] MEDS: ONDANSETRON 4 MG/2 ML VIAL IVP PRN (05:58)
[2019-09-22] MEDS: PANTOPRAZOLE 40 MG TABLET PO SCH (06:57)
[2019-09-22] MEDS ORDERED: NON FORMULARY DRUG (Omega-3 Fatty Acids/Fish Oil [Fish Oil 1,000 Mg Softgel] 1 CAP) PO SCH (09:00)
[2019-09-22] MEDS: LOSARTAN 25 MG TAB PO SCH (09:14)
[2019-09-22] MEDS: ANASTROZOLE 1 MG TAB PO SCH (09:14)
[2019-09-22] MEDS: CHOLECALCIFEROL 1,000 UNIT TAB PO SCH ×2 (09:14→21:38)
[2019-09-22] MEDS: ASPIRIN 81 MG PO SCH (09:14)
[2019-09-22] MEDS: ASCORBIC ACID 500 MG TAB PO SCH (09:14)
--- NOTE | 2019-09-22 10:23 | P.HPIM ---
History of Present Illness H&P Date: 09/22/19 Oxana Barros, is an 84-year-old female patient of Dr. Barahona, who presented to [facility] emergency room with a chief complaint of weakness and a syncopal episode patient stated that she went to a social function with her she drove the car for about 25 miles while sitting at the function she felt warm and week subsequently she lost consciousness, she regained consciousness spontaneously, she was told that she was out for about 5 minutes, patient was brought in to emergency room for evaluation and treatment. In the emergency room temperature was normal at 97.9 pulse 64 respiration 19 and blood pressure 153/81 and pulse ox 98% on room air, EKG revealed normal sinus rhythm with first-degree AV block and left bundle branch block, white blood count was elevated at 14.2 sodium was slightly low at 131 d-dimer was elevated at 0.67 CT angiogram of the chest was done and was negative for pulmonary embolism, urine analysis revealed evidence of urinary tract infection, patient was started on IV antibiotics Rocephin and was admitted to medical floor with telemetry for further evaluation and treatment. Patient has a known history of breast cancer with history of mastectomy and chemotherapy she also has history of bladder cancer with urostomy placement in 2013 she is followed by Dr. Hi and Dr. Woodward. Patient also has a known history of hypertension, hyperlipidemia, hypothyroidism, and history of osteopenia. On review of systems patient was seen and examined on the medical floor on 09/22/2019 she is alert and oriented 3 in no apparent distress she is compl aining of nausea she had 1 episode of vomiting during the night time otherwise she denies any complaints there is no fever or chills no headache or dizziness no chest pain no shortness of breath no cough no abdominal pain no diarrhea no blood in the stools no blood in the urine. Patient also denies any weakness or numbness in any of her extremities there is no change in her vision speech or gait. Past Medical History Past Medical History: Cancer, GERD/Reflux, Hyperlipidemia, Hypertension, Thyroid Disorder Additional Past Medical History / Comment(s): HEART MURMUR, H. PYLORI, CA BREAST AND BLADDER, RECEIVING CHEMOTHERAPY FOR BLADDER CANCER History of Any Multi-Drug Resistant Organisms: None Reported Past Surgical History: Bladder Surgery, Breast Surgery, Cholecystectomy, Heart Catheterization With Stent, Joint Replacement, Orthopedic Surgery, Tonsillectomy Additional Past Surgical History / Comment(s): RT CARPAL TUNNEL, LEFT KNEE REPLACEMENT, ARTHROSCOPY RT KNEE, BACK SURGERY (3,4,5), BLADDER POLYPS, OVARY REMOVED, RT MASTECTOMY (MAY 2013) Cath- 3 stent, 2017 Past Anesthesia/Blood Transfusion Reactions: No Reported Reaction Additional Past Anesthesia/Blood Transfusion Reaction / Comment(s): "FACE HOT" Date of Last Stent Placement:: 12/2017 Past Psychological History: No Psychological Hx Reported Smoking Status: Never smoker Past Alcohol Use History: None Reported Past Drug Use History: None Reported - Past Family History Father Family Medical History: Cancer Additional Family Medical History / Comment(s): COLON Mother Family Medical History: Cancer Additional Family Medical History / Comment(s): COLON AND KIDNEY CA Medications and Allergies Home Medications Medication Instructions Recorded Confirmed Type Ascorbic Acid [Vitamin C] 500 mg PO DAILY 07/30/13 09/21/19 History Cholecalciferol [Vitamin D3] 1,000 unit PO BID 07/30/13 09/21/19 History Anastrozole [Arimidex] 1 mg PO DAILY 09/21/19 09/21/19 History Aspirin EC [Ecotrin Low Dose] 81 mg PO DAILY 09/21/19 09/21/19 History Atenolol [Tenormin] 50 mg PO HS 09/21/19 09/21/19 History Atorvastatin [Lipitor] 40 mg PO HS 09/21/19 09/21/19 History Levothyroxine Sodium [Synthroid] 75 mcg PO DAILY 09/21/19 09/21/19 History Losartan Potassium [Cozaar] 25 mg PO DAILY 09/21/19 09/21/19 History Multivitamin [Multivitamins Adult 3 tab PO DAILY 09/21/19 09/21/19 History Gummies] Nitroglycerin Sl Tabs [Nitrostat] 0.4 mg SUBLINGUAL Q5M PRN 09/21/19 09/21/19 History [place]-3 Fatty Acids/Fish Oil [Fish 1 cap PO DAILY 09/21/19 09/21/19 History Oil 1,000 mg Softgel] Omeprazole 40 mg PO DAILY 09/21/19 09/21/19 History calcium polycarbophiL [Fibercon] 625 mg PO BID 09/21/19 09/21/19 History Allergies Allergy/AdvReac Type Severity Reaction Status Date / Time No Known Allergies Allergy Verified 09/21/19 17:24 Physical Exam Vitals: Vital Signs Temp Pulse Pulse Resp BP BP BP 09/22/19 08:17 98.0 F 66 16 120/72 09/22/19 03:00 98.1 F 96 18 116/73 110/73 09/21/19 21:00 97.9 F 72 18 09/21/19 18:16 97.9 F 71 16 171/90 09/21/19 17:40 97.9 F 72 18 09/21/19 15:01 97.9 F 64 19 153/81 BP BP Pulse Ox 09/22/19 08:17 95 09/22/19 03:00 116/77 94/63 96 09/21/19 21:00 162/89 99 09/21/19 18:16 99 09/21/19 17:40 162/89 99 09/21/19 15:01 98 Intake and Output 09/21/19 09/22/19 09/22/19 22:59 06:59 14:59 Intake Total 100 Output Total 400 Balance -400 100 Intake: Intake, IV Titration 100 Amount Sodium Chloride 0.9% 1, 100 000 ml @ 100 mls/hr IV . Q10H ONE Rx#:[id number] Output: Urine 400 Other: Voiding Method Ileal Conduit (Right) Ileal Conduit (Right) Weight 99.79 kg In general patient is alert and oriented 3 in no apparent distress HEENT head normocephalic and atraumatic Neck is supple no JVD no goiter no lymphadenopathy Chest exam reveals a few scattered crackles no wheezing Abdomen is soft nontender no organomegaly with normal bowel sounds Extremity exam reveals no edema no cyanosis or clubbing Neurological examination reveals no gross focal deficit Results CBC & Chem 7: 09/21/19 16:15 09/21/19 16:15 Labs: Abnormal Lab Results - Last 24 Hours (Table) 09/21/19 09/21/19 09/21/19 Range/Units 16:15 16:15 16:15 WBC 14.2 H (3.8-10.6) k/uL Hct 46.3 H (34.0-46.0) % Neutrophils # 12.2 H (1.3-7.7) k/uL Lymphocytes # 0.7 L (1.0-4.8) k/uL D-Dimer (<0.60) mg/L FEU Sodium 131 L (137-145) mmol/L Carbon Dioxide 20 L (22-30) mmol/L BUN 25 H (7-17) mg/dL Glucose 120 H (74-99) mg/dL Urine Appearance Cloudy H (Clear) Urine Protein Trace H (Negative) Urine Blood Small H (Negative) Urine Nitrite Positive H (Negative) Ur Leukocyte Esterase Large H (Negative) Urine RBC 12 H (0-5) /hpf Urine WBC 76 H (0-5) /hpf Amorphous Sediment Few H (None) /hpf Urine Bacteria Rare H (None) /hpf 09/21/19 Range/Units 16:50 WBC (3.8-10.6) k/uL Hct (34.0-46.0) % Neutrophils # (1.3-7.7) k/uL Lymphocytes # (1.0-4.8) k/uL D-Dimer 0.67 H (<0.60) mg/L FEU Sodium (137-145) mmol/L Carbon Dioxide (22-30) mmol/L BUN (7-17) mg/dL Glucose (74-99) mg/dL Urine Appearance (Clear) Urine Protein (Negative) Urine Blood (Negative) Urine Nitrite (Negative) Ur Leukocyte Esterase (Negative) Urine RBC (0-5) /hpf Urine WBC (0-5) /hpf Amorphous Sediment (None) /hpf Urine Bacteria (None) /hpf Microbiology - Last 24 Hours (Table) 09/21/19 16:15 Urine Culture - Preliminary Urine,Voided Thrombosis Risk Factor Assmnt - Choose All That Apply Any of the Below Risk Factors Present?: Yes Each Factor Represents 1 point: Obesity (BMI >25) Other Risk Factors: No Thrombosis Risk Factor Assessment Total Risk Factor Score: 1 Thrombosis Risk Factor Assessment Level: Low Risk Assessment and Plan Plan: 1. Urinary tract infection with sepsis as evidenced by leukocytosis 2. Syncopal episode, with loss of consciousness of 5 minutes duration 3. Underlying history of hypertension 4. Underlying history of hyperlipidemia 5. Underlying history of hypothyroidism, check TSH 6. Mild hyponatremia with sodium of 131 7. Elevated d-dimer, no evidence of pulmonary embolism on CT angiogram of the chest 8. Abnormal EKG with evidence of first-degree AV block and left bundle branch block At this time patient is admitted to medical floor with remote telemetry she was started on IV Rocephin and IV normal saline Will check computed tomography scan of the brain in regard to syncope Will check echocardiogram and carotid Doppler Will consult cardiology Will recheck labs in regard to hyponatremia and leukocytosis
[2019-09-22 10:56] LABS: Basophils % (A) 0 %; Eosinophils # (A) 0.1 k/uL (0-0.7); Eosinophils % (A) 1 %; HCT 44.2 % (34.0-46.0); HGB 13.7 gm/dL (11.4-16.0); Lymphocytes # (A) 0.6 k/uL (1.0-4.8); Lymphocytes % (A) 4 %; MCH 30.9 pg (25.0-35.0); MCHC 31.1 g/dL (31.0-37.0); MCV 99.2 fL (80.0-100.0); Mean Platelet Volume 7.8; Monocytes # (A) 1.2 k/uL (0-1.0); Monocytes % (A) 9 %; Neutrophils % (A) 84 %; Platelet Count 222 k/uL (150-450); RBC 4.45 m/uL (3.80-5.40); RDW 12.7 % (11.5-15.5); WBC 13.1 k/uL (3.8-10.6)
[2019-09-22 11:13] LABS: Albumin 3.6 g/dL (3.5-5.0); Calcium 8.9 mg/dL (8.4-10.2); Potassium 4.6 mmol/L (3.5-5.1); Total Bilirubin 1.4 mg/dL (0.2-1.3); Total Protein 6.1 g/dL (6.3-8.2)
--- NOTE | 2019-09-22 11:13 | P.CRDCN ---
History of Present Illness Consult date: 09/22/19 Chief complaint: Syncope History of present illness: This is a very pleasant 84-year-old female patient with a past medical history significant for coronary artery disease and prior coronary stenting performed at [facility] with unknown details at this point, hypertension, dyslipidemia, and history of breast cancer was admitted to the hospital with syncope. She was in her usual state of health where she was at a graduation green party sitting on her walker when suddenly she lost her consciousness for about 5 minutes. The episode was witnessed by her family. Before the episode she felt charter coordinator her face and also she further dizzy and lightheaded. It seems that the episode is cardiac related. Beside that no symptoms of chest pain or chest discomfort or shortness of breath. Subsequently the patient was admitted to the hospital for further evaluation. She was diagnosed here was UTI and she was started on antibiotic. The pressure has been marginally low. The heart rate has been marginally low. The patient is on atenolol at 50 mg by mouth daily. The EKG showed sinus rhythm with first-degree AV block and left bundle branch block. She underwent a d-dimer and that came in to be abnormal but subsequent CTA of the chest came in to be unremarkable. An echocardiogram is in process to be done. Otherwise the WBC is elevated, sodium was 131, and potassium is within normal limits. On physical examination, the patient does have quite significant systolic murmur at the right upper sternal border consistent with aortic stenos is. Past Medical History Past Medical History: Cancer, GERD/Reflux, Hyperlipidemia, Hypertension, Thyroid Disorder Additional Past Medical History / Comment(s): HEART MURMUR, H. PYLORI, CA BREAST AND BLADDER, RECEIVING CHEMOTHERAPY FOR BLADDER CANCER History of Any Multi-Drug Resistant Organisms: None Reported Past Surgical History: Bladder Surgery, Breast Surgery, Cholecystectomy, Heart Catheterization With Stent, Joint Replacement, Orthopedic Surgery, Tonsillectomy Additional Past Surgical History / Comment(s): RT CARPAL TUNNEL, LEFT KNEE REPLACEMENT, ARTHROSCOPY RT KNEE, BACK SURGERY (3,4,5), BLADDER POLYPS, OVARY REMOVED, RT MASTECTOMY (MAY 2013) Cath- 3 stent, 2017 Past Anesthesia/Blood Transfusion Reactions: No Reported Reaction Additional Past Anesthesia/Blood Transfusion Reaction / Comment(s): "FACE HOT" Date of Last Stent Placement:: 12/2017 Past Psychological History: No Psychological Hx Reported Smoking Status: Never smoker Past Alcohol Use History: None Reported Past Drug Use History: None Reported - Past Family History Father Family Medical History: Cancer Additional Family Medical History / Comment(s): COLON Mother Family Medical History: Cancer Additional Family Medical History / Comment(s): COLON AND KIDNEY CA Medications and Allergies Home Medications Medication Instructions Recorded Confirmed Type Ascorbic Acid [Vitamin C] 500 mg PO DAILY 07/30/13 09/21/19 History Cholecalciferol [Vitamin D3] 1,000 unit PO BID 07/30/13 09/21/19 History Anastrozole [Arimidex] 1 mg PO DAILY 09/21/19 09/21/19 History Aspirin EC [Ecotrin Low Dose] 81 mg PO DAILY 09/21/19 09/21/19 History Atenolol [Tenormin] 50 mg PO HS 09/21/19 09/21/19 History Atorvastatin [Lipitor] 40 mg PO HS 09/21/19 09/21/19 History Levothyroxine Sodium [Synthroid] 75 mcg PO DAILY 09/21/19 09/21/19 History Losartan Potassium [Cozaar] 25 mg PO DAILY 09/21/19 09/21/19 History Multivitamin [Multivitamins Adult 3 tab PO DAILY 09/21/19 09/21/19 History Gummies] Nitroglycerin Sl Tabs [Nitrostat] 0.4 mg SUBLINGUAL Q5M PRN 09/21/19 09/21/19 History [place]-3 Fatty Acids/Fish Oil [Fish 1 cap PO DAILY 09/21/19 09/21/19 History Oil 1,000 mg Softgel] Omeprazole 40 mg PO DAILY 09/21/19 09/21/19 History calcium polycarbophiL [Fibercon] 625 mg PO BID 09/21/19 09/21/19 History Allergies Allergy/AdvReac Type Severity Reaction Status Date / Time No Known Allergies Allergy Verified 09/21/19 17:24 Physical Exam Vitals: Vital Signs Temp Pulse Pulse Resp BP BP BP 09/22/19 08:17 98.0 F 66 16 120/72 09/22/19 03:00 98.1 F 96 18 116/73 110/73 09/21/19 21:00 97.9 F 72 18 09/21/19 18:16 97.9 F 71 16 171/90 09/21/19 17:40 97.9 F 72 18 09/21/19 15:01 97.9 F 64 19 153/81 BP BP Pulse Ox 09/22/19 08:17 95 09/22/19 03:00 116/77 94/63 96 09/21/19 21:00 162/89 99 09/21/19 18:16 99 09/21/19 17:40 162/89 99 09/21/19 15:01 98 Intake and Output 09/21/19 09/22/19 09/22/19 22:59 06:59 14:59 Intake Total 100 Output Total 400 Balance -400 100 Intake: Intake, IV Titration 100 Amount Sodium Chloride 0.9% 1, 100 000 ml @ 100 mls/hr IV . Q10H ONE Rx#:[id number] Output: Urine 400 Other: Voiding Method Ileal Conduit (Right) Ileal Conduit (Right) Weight 99.79 kg - Constitutional General appearance: no acute distress - Respiratory Respiratory: bilateral: CTA - Cardiovascular Rhythm: regular Heart sounds: normal: S1, S2 Abnormal Heart Sounds: systolic murmur Results 09/22/19 10:39 09/21/19 16:15 Cardiac Enzymes 09/21/19 09/21/19 Range/Units 16:15 16:15 AST 33 (14-36) U/L Troponin I <0.012 (0.000-0.034) ng/mL Coagulation 09/21/19 Range/Units 16:50 PT 9.9 (9.0-12.0) sec APTT 24.6 (22.0-30.0) sec CBC 09/21/19 09/22/19 Range/Units 16:15 10:39 WBC 14.2 H 13.1 H (3.8-10.6) k/uL RBC 4.83 4.45 (3.80-5.40) m/uL Hgb 15.2 13.7 (11.4-16.0) gm/dL Hct 46.3 H 44.2 (34.0-46.0) % Plt Count 221 222 (150-450) k/uL Comprehensive Metabolic Panel 09/21/19 Range/Units 16:15 Sodium 131 L (137-145) mmol/L Potassium 4.7 (3.5-5.1) mmol/L Chloride 101 (98-107) mmol/L Carbon Dioxide 20 L (22-30) mmol/L BUN 25 H (7-17) mg/dL Creatinine 0.98 (0.52-1.04) mg/dL Glucose 120 H (74-99) mg/dL Calcium 10.0 (8.4-10.2) mg/dL AST 33 (14-36) U/L ALT 16 (4-34) U/L Alkaline Phosphatase 124 (38-126) U/L Total Protein 7.5 (6.3-8.2) g/dL Albumin 4.5 (3.5-5.0) g/dL Current Medications Generic Name Dose Route Start Last Admin Trade Name Freq PRN Reason Stop Dose Admin Anastrozole 1 mg 09/22/19 09:00 09/22/19 09:14 Arimidex PO 1 mg DAILY ADARSH Administration Ascorbic Acid 500 mg 09/22/19 09:00 09/22/19 09:14 Vitamin C PO 500 mg DAILY ADARSH Administration Aspirin 81 mg 09/22/19 09:00 09/22/19 09:14 Aspirin PO 81 mg DAILY ADARSH Administration Atenolol 50 mg 09/21/19 21:00 09/21/19 22:34 Tenormin PO 50 mg HS ADARSH Administration Atorvastatin Calcium 40 mg 09/21/19 21:00 09/21/19 22:34 Lipitor PO 40 mg HS ADARSH Administration Calcium Polycarbophil 625 mg 09/21/19 21:00 09/22/19 09:14 Fibercon PO 625 mg BID ADARSH Administration Cholecalciferol 1,000 unit 09/21/19 21:00 09/22/19 09:14 Vitamin D3 (25 Mcg = 1000 Iu) PO 1,000 unit BID ADARSH Administration Ceftriaxone Sodium 1 gm/ 50 mls @ 100 mls/hr 09/22/19 16:00 Sodium Chloride IVPB Q24H [facility] Levothyroxine Sodium 75 mcg 09/22/19 06:30 09/22/19 05:58 Synthroid PO 75 mcg DAILY@0630 [facility] Administration Losartan Potassium 25 mg 09/22/19 09:00 09/22/19 09:14 Cozaar PO 25 mg DAILY ADARSH Administration Multivitamins 1 each 09/22/19 12:00 Theragran PO DAILY@1200 [facility] Nitroglycerin 0.4 mg 09/21/19 21:00 Nitrostat SUBLINGUAL Q5M PRN Chest Pain Ondansetron HCl 4 mg 09/21/19 21:03 09/22/19 05:58 Zofran IVP 4 mg Q6HR PRN Administration Nausea And Vomiting Pantoprazole Sodium 40 mg 09/22/19 07:30 09/22/19 06:57 Protonix PO Not Given AC-BRKFST [facility] Intake and Output 09/21/19 09/22/19 09/22/19 22:59 06:59 14:59 Intake Total 100 Output Total 400 Balance -400 100 Intake: Intake, IV Titration 100 Amount Sodium Chloride 0.9% 1, 100 000 ml @ 100 mls/hr IV . Q10H ONE Rx#:[id number] Output: Urine 400 Other: Voiding Method Ileal Conduit (Right) Ileal Conduit (Right) Weight 99.79 kg 09/22/19 10:39 09/21/19 16:15 Assessment and Plan Assessment: Assessment #1 urinary tract infection #2 syncope likely related to bradycardia #3 coronary artery disease and prior stenting #4 valvular heart disease #6 multiple comorbid conditions Plan #1 I recommended decreasing the dose of atenolol to 25 mg by mouth daily #2 monitor the heart rhythm and monitor for any bradycardia or sinus pauses #3 the patient benefit from an event monitor as an outpatient if no significant arrhythmia was noted during this admission #4 obtain an echocardiogram was Doppler #5 follow-up with the patient
[2019-09-22] MEDS ORDERED: MULTIVITAMINS, THERA 1 EACH TAB PO SCH (12:00)
--- NOTE | 2019-09-22 14:28 | US ---
EXAMINATION TYPE: US abdomen complete DATE OF EXAM: 09/22/2019 COMPARISON: CT 2017 CLINICAL HISTORY: vomiting. EXAM MEASUREMENTS: Liver Length: 15.1 cm Gallbladder Wall: Surgically absent CBD: 0.4 cm Spleen: 10.2 cm Right Kidney: 10.6 x 4.3 x 5.2 cm Left Kidney: 12.6 x 5.1 cm Pancreas: visualized portions wnl Liver: wnl Gallbladder: Surgically absent CBD: wnl Spleen: wnl Right Kidney: fluid in renal pelvis Left Kidney: No hydronephrosis or masses seen Upper IVC: wnl Abd Aorta: bifurcation not visualized due to bowel gas. IMPRESSION: Cholecystectomy. No dilated ducts. Negative exam.
--- NOTE | 2019-09-22 14:30 | US ---
EXAMINATION TYPE: US carotid duplex BILAT DATE OF EXAM: 09/22/2019 COMPARISON: NONE CLINICAL HISTORY: syncope. EXAM MEASUREMENTS: RIGHT: Peak Systolic Velocity (PSV) cm/sec ----- Right CCA: 77.9 ----- Right ICA: 157.4 ----- Right ECA: 96.9 ICA/CCA ratio: 2.0 RIGHT: End Diastole cm/sec ----- Right CCA: 14.2 ----- Right ICA: 25.4 ----- Right ECA: 0.0 LEFT: Peak Systolic Velocity (PSV) cm/sec ----- Left CCA: 83.2 ----- Left ICA: 97.7 ----- Left ECA: 108.3 ICA/CCA ratio: 1.2 LEFT: End Diastole cm/sec ----- Left CCA: 15.7 ----- Left ICA: 18.4 ----- Left ECA: 0.0 VERTEBRALS (direction of flow): Right Vertebral: Antegrade Left Vertebral: Antegrade Rhythm: Normal No significant stenosis seen. Mildly elevated right bulb velocities. Extensive shadowing plaque bilat erally, left greater than right. IMPRESSION: There is antegrade flow in the vertebral arteries. Extensive calcified plaque. Measurements in the ar ea of significant plaque is limited. Estimated stenosis is 50-70% in both internal carotid arteries. Criteria for Assigning % of Stenosis / Diameter reduction (Estimation based on the indirect measurements of the internal carotid artery velocities (ICA PSV). 1. Normal (no stenosis)=ICA PSV < 125 cm/s: ratio < 2.0: ICA EDV<40 cm/s. 2. Less than 50% stenosis=ICA PSV < 125 cm/s: ratio < 2.0: ICA EDV<40 cm/s. 3. 50 to 69% stenosis=ICA PSV of 125 to 230 cm/s: ration 2.0 ? 4.0: ICA EDV 40-100 cm/s. 4. Greater than 70% stenosis to near occlusion= ICA PSV > 230 cm/s: ratio > 4.0: ICA EDV > 100 cm/s. 5. Near occlusion= ICA PSV velocities may be low or undetectable: variable ratio and ICA EDV. 6. Total occlusion=unable to detect flow.
--- NOTE | 2019-09-22 15:02 | CT ---
EXAMINATION TYPE: CT brain wo con DATE OF EXAM: 09/22/2019 HISTORY: syncope CT DLP: 945.5 mGycm. Automated Exposure Control for Dose Reduction was Utilized. TECHNIQUE: CT scan of the head is performed without contrast. COMPARISON: None FINDINGS: There is no acute intracranial hemorrhage, midline shift, or mass effect identified. Patchy periventr icular white matter hypodensities likely sequela of chronic microvascular ischemic change. The ventricles, sulci, and cisterns are normal in size and configuration. No extra-axial fluid collection. No depressed calvarial fracture. The globes are grossly symmetric. V isualized sinuses and mastoid air cells are clear. IMPRESSION: No acute intracranial hemorrhage, midline shift, or mass effect.
--- NOTE | 2019-09-22 15:13 | ECHOF ---
Referral Reason: MEASUREMENTS -------- HEIGHT: 172.7 cm WEIGHT: 99.8 kg BP: 120/72 RVIDd: 3.6 cm (< 3.3) IVSd: 1.6 cm (0.6 - 1.1) LVIDd: 3.7 cm (3.9 - 5.3) LVPWd: 1.4 cm (0.6 - 1.1) IVSs: 1.9 cm LVIDs: 2.4 cm LVPWs: 1.7 cm LAESV Index (A-L): 35.37 ml/m Ao Diam: 3.3 cm (2.0 - 3.7) AV Cusp: 1.4 cm (1.5 - 2.6) MV EXCURSION: 12.495 mm (> 18.000) MV EF SLOPE: 32 mm/s (70 - 150) EPSS: 0.5 cm MV E Bernard: 0.81 m/s MV DecT: 257 ms MV A Bernard: 1.21 m/s MV E/A Ratio: 0.67 AV maxP.01 mmHg AV meanP.80 mmHg RAP: 5.00 mmHg RVSP: 33.65 mmHg FINDINGS -------- Sinus rhythm. This was a technically adequate study. The left ventricular size is normal. There is moderate concentric left ventricular hypertrophy. O verall left ventricular systolic function is normal with, an EF between 55 - 60 %. The diastolic fi lling pattern is normal for the age of the patient {E/E'}. The right ventricle is mild to moderately enlarged. LA is moderately dilated 34-39 ml/m2 The right atrium is moderately enlarged. Interatrial and interventricular septum intact. There is no evidence of aortic regurgitation. Moderate aortic stenosis with peak/mean pressure grad ient of 31.01mmHg / 19.80mmHg, the aortic valve area by continuity equation is 1.3cm. Peak/mean gr adient across the Aortic Valve is 31.01mmHg / 19.80mmHg. Moderate mitral annular calcification present. Mild mitral regurgitation is present. Mild tricuspid regurgitation present. There is borderline pulmonary hypertension. The right ventr icular systolic pressure, as measured by Doppler, is 33.65mmHg. There is no pulmonic regurgitation present. The aortic root size is normal. Normal inferior vena cava with normal inspiratory collapse consistent with estimated right atrial pre ssure of 5 mmHg. There is no pericardial effusion. CONCLUSIONS -------- 1. The left ventricular size is normal. 2. There is moderate concentric left ventricular hypertrophy. 3. Overall left ventricular systolic function is normal with, an EF between 55 - 60 %. 4. The diastolic filling pattern is normal for the age of the patient {E/E'} 5. The right ventricle is mild to moderately enlarged. 6. LA is moderately dilated 34-39 ml/m2 7. The right atrium is moderately enlarged. 8. Moderate aortic stenosis with peak/mean pressure gradient of 31.01mmHg / 19.80mmHg, the aortic nicolas ve area by continuity equation is 1.3cm. 9. Peak/mean gradient across the Aortic Valve is 31.01mmHg / 19.80mmHg. 10. Moderate mitral annular calcification present. 11. Mild mitral regurgitation is present. 12. Mild tricuspid regurgitation present. 13. There is borderline pulmonary hypertension. 14. The right ventricular systolic pressure, as measured by Doppler, is 33.65mmHg. FACILITIES MANAGEMENT EXECUTIVE: Thao Lowery RDCS
[2019-09-22] MEDS ORDERED: atenoloL 25 MG TAB PO SCH (21:00)
[2019-09-22 21:33] VITALS: RESP 18
[2019-09-22] MEDS: ATORVASTATIN 40 MG TAB PO SCH (21:39)
[2019-09-23] MEDS: PANTOPRAZOLE 40 MG TABLET PO SCH (06:14)
[2019-09-23] MEDS: LEVOTHYROXINE 75 MCG TAB PO SCH (06:14)
[2019-09-23 06:22] LABS: Basophils # (A) 0.1 k/uL (0-0.2); Basophils % (A) 1 %; Eosinophils # (A) 0.3 k/uL (0-0.7); Eosinophils % (A) 3 %; HCT 40.4 % (34.0-46.0); HGB 13.1 gm/dL (11.4-16.0); Lymphocytes # (A) 1.3 k/uL (1.0-4.8); Lymphocytes % (A) 16 %; MCH 31.2 pg (25.0-35.0); MCHC 32.4 g/dL (31.0-37.0); MCV 96.2 fL (80.0-100.0); Mean Platelet Volume 7.8; Monocytes # (A) 0.6 k/uL (0-1.0); Monocytes % (A) 8 %; Neutrophils # (A) 5.5 k/uL (1.3-7.7); Neutrophils % (A) 70 %; Platelet Count 217 k/uL (150-450); WBC 7.8 k/uL (3.8-10.6)
[2019-09-23 06:39] LABS: Albumin 3.5 g/dL (3.5-5.0); Calcium 9.2 mg/dL (8.4-10.2); Potassium 4.4 mmol/L (3.5-5.1); Total Protein 5.9 g/dL (6.3-8.2)
[2019-09-23] MEDS: LOSARTAN 25 MG TAB PO SCH (09:13)
[2019-09-23] MEDS: ASCORBIC ACID 500 MG TAB PO SCH (09:13)
[2019-09-23] MEDS: CHOLECALCIFEROL 1,000 UNIT TAB PO SCH (09:13)
[2019-09-23] MEDS: ASPIRIN 81 MG PO SCH (09:13)
[2019-09-23] MEDS: ANASTROZOLE 1 MG TAB PO SCH (09:28)
[2019-09-23] MEDS ORDERED: DOBUTamine DRIP for NUC MED 500 MG in DEXTROSE/WATER 1 250ML.BAG IV ONE (09:45)
[2019-09-23 13:26] VITALS: BP 127/75; PULSE 56; TEMP 97.9
--- NOTE | 2019-09-23 13:30 | ECHOS ---
STRESS ECHOCARDIOGRAM LUMASON: Vial INDICATIONS: Chest pain, syncope. MEDICATIONS: BASELINE HEART RATE: 63 BASELINE BLOOD PRESSURE: 156/75 MAXIMUM HEART RATE: 119 MAXIMUM BLOOD PRESSURE: 139/78 85% MPHR: 117 100% MPHR: 138 METS: MAXIMUM STAGE REACHED: TOTAL EXERCISE TIME: CLINICAL INFORMATION: Baseline EKG shows sinus rhythm with left bundle branch block. Patient was given intravenous dobutamine over a period of 10 minutes as per protocol, achieving 86% of predicted maximal heart rate without chest pain. EKG changes are inconclusive secondary to left bundle branch block. Baseline echo was technically suboptimal secondary to poor echo windows. Patient was given Lumason to enhance endocardial visualization. LV function and wall motion were normal. Post dobutamine infusion, there is normal hyperdynamic response of all segments of myocardium noted. CONCLUSION: 1. Inconclusive EKG part of the stress test due to left bundle branch block. 2. Negative contrast dobutamine stress echo. MMODL / IJN: [id number] /
--- NOTE | 2019-09-23 19:57 | P.DS ---
Providers Date of admission: 09/21/19 17:21 Expected date of discharge: 09/23/19 Attending physician: Deepa Overton Consults: 09/22/19 10:29 Consult Physician Routine Consulting Provider: Patricia Morales Consult Reason/Comments: syncope Do you want consulting provider notified?: Yes Primary care physician: Amanda Barahona [facility] Course: Diagnosis on discharge: 1. Urinary tract infection with sepsis as evidenced by leukocytosis 2. Syncopal episode, with loss of consciousness of 5 minutes duration 3. Underlying history of hypertension 4. Underlying history of hyperlipidemia 5. Underlying history of hypothyroidism, check TSH 6. Mild hyponatremia with sodium of 131 7. Elevated d-dimer, no evidence of pulmonary embolism on CT angiogram of the chest 8. Abnormal EKG with evidence of first-degree AV block and left bundle branch block Hospital course: Oxana Barros, is an 84-year-old female patient of Dr. Barahona, who presented to [facility] emergency room with a chief complaint of weakness and a syncopal episode patient stated that she went to a social function with her she drove the car for about 25 miles while sitting at the function she felt warm and week subsequently she lost consciousness, she regained consciousness spontaneously, she was told that she was out for about 5 minutes, patient was brought in to emergency room for evaluation and treatment. In the emergency room temperature was normal at 97.9 pulse 64 respiration 19 and blood pressure 153/81 and pulse ox 98% on room air, EKG revealed normal sinus rhythm with first-degree AV block and left bundle branch block, white blood count was elevated at 14.2 sodium was slightly low at 131 d-dimer was elevated at 0.67 CT angiogram of the chest was done and was negative for pulmonary embolism, urine analysis revealed evidence of urinary tract infection, patient was started on IV antibiotics Rocephin and was admitted to medical floor with telemetry for further evaluation and treatment. Patient has a known history of breast cancer with history of mastectomy and chemotherapy she also has history of bladder cancer with urostomy placement in 2013 she is followed by Dr. Lawson and Dr. Woodward. Patient also has a known history of hypertension, hyperlipidemia, hypothyroidism, and history of osteopenia. On review of systems patient was seen and examined on the medical floor on 09/22/2019 she is alert and oriented 3 in no apparent distress she is complaining of nausea she had 1 episode of vomiting during the night time otherwise she denies any complaints there is no fever or chills no headache or dizziness no chest pain no shortness of breath no cough no abdominal pain no diarrhea no blood in the stools no blood in the urine. Patient also denies any weakness or numbness in any of her extremities there is no change in her vision speech or gait. On 09/23/2019 patient was seen and examined on the medical floor she is alert and oriented 3 in no apparent distress there is no fever or chills no headache or dizziness no chest pain no shortness of breath no cough no nausea or vomiting no abdominal pain no diarrhea no burning with urination no frequency or urgency and no hematuria, patient was evaluated by cardiology and was cleared for discharge, echocardiogram revealed evidence of moderate aortic stenosis, and this should be followed closely as outpatient by primary care physician and cardiology, ejection fraction was normal, patient was given an oral antibiotic course for urinary tract infection and was discharged home Patient Condition at Discharge: Fair Plan - Discharge Summary Discharge Rx Participant: No New Discharge Prescriptions: New Cefuroxime Axetil [Ceftin] 500 mg PO BID 7 Days #14 tab Continue Ascorbic Acid [Vitamin C] 500 mg PO DAILY Cholecalciferol [Vitamin D3 (25 Mcg = 1000 Iu)] 1,000 unit PO BID Anastrozole [Arimidex] 1 mg PO DAILY Aspirin EC [Ecotrin Low Dose] 81 mg PO DAILY Atenolol [Tenormin] 50 mg PO HS Atorvastatin [Lipitor] 40 mg PO HS calcium polycarbophiL [Fibercon] 625 mg PO BID Levothyroxine Sodium [Synthroid] 75 mcg PO DAILY Losartan Potassium [Cozaar] 25 mg PO DAILY Multivitamin [Multivitamins Adult Gummies] 3 tab PO DAILY Nitroglycerin Sl Tabs [Nitrostat] 0.4 mg SUBLINGUAL Q5M PRN PRN Reason: Chest Pain [place]-3 Fatty Acids/Fish Oil [Fish Oil 1,000 mg Softgel] 1 cap PO DAILY Omeprazole 40 mg PO DAILY Discharge Medication List Ascorbic Acid [Vitamin C] 500 mg PO DAILY 07/30/13 [History] Cholecalciferol [Vitamin D3 (25 Mcg = 1000 Iu)] 1,000 unit PO BID 07/30/13 [History] Anastrozole [Arimidex] 1 mg PO DAILY 09/21/19 [History] Aspirin EC [Ecotrin Low Dose] 81 mg PO DAILY 09/21/19 [History] Atenolol [Tenormin] 50 mg PO HS 09/21/19 [History] Atorvastatin [Lipitor] 40 mg PO HS 09/21/19 [History] Levothyroxine Sodium [Synthroid] 75 mcg PO DAILY 09/21/19 [History] Losartan Potassium [Cozaar] 25 mg PO DAILY 09/21/19 [History] Multivitamin [Multivitamins Adult Gummies] 3 tab PO DAILY 09/21/19 [History] Nitroglycerin Sl Tabs [Nitrostat] 0.4 mg SUBLINGUAL Q5M PRN 09/21/19 [History] [place]-3 Fatty Acids/Fish Oil [Fish Oil 1,000 mg Softgel] 1 cap PO DAILY 09/21/19 [History] Omeprazole 40 mg PO DAILY 09/21/19 [History] calcium polycarbophiL [Fibercon] 625 mg PO BID 09/21/19 [History] Cefuroxime Axetil [Ceftin] 500 mg PO BID 7 Days #14 tab 09/23/19 [Rx] Follow up Appointment(s)/Referral(s): Amanda Barahona MD [Primary Care Provider] - 09/25/19 11:30 am
== END 2019-09-23 16:45 ==
LOC: EC 14:59 → 3NCARDOBS 17:21
PROVIDERS: ADMIT Internal Medicine; ATTEND Internal Medicine
DX: A41.9 Sepsis, unspecified organism (principal); R55 Syncope and collapse; E03.9 Hypothyroidism, unspecified; E78.5 Hyperlipidemia, unspecified; E86.0 Dehydration; E87.1 Hypo-osmolality and hyponatremia; I10 Essential (primary) hypertension; I25.10 Atherosclerotic heart disease of native coronary artery without angina pectoris; I35.0 Nonrheumatic aortic (valve) stenosis; I44.0 Atrioventricular block, first degree; I44.7 Left bundle-branch block, unspecified; M85.80 Other specified disorders of bone density and structure, unspecified site; N39.0 Urinary tract infection, site not specified; Z79.82 Long term (current) use of aspirin; Z79.890 Hormone replacement therapy; Z79.899 Other long term (current) drug therapy; Z80.51 Family history of malignant neoplasm of kidney; Z85.3 Personal history of malignant neoplasm of breast; Z85.51 Personal history of malignant neoplasm of bladder; Z90.11 Acquired absence of right breast and nipple; Z92.21 Personal history of antineoplastic chemotherapy; Z93.6 Other artificial openings of urinary tract status; Z95.5 Presence of coronary angioplasty implant and graft; Z96.652 Presence of left artificial knee joint
CPT/HCPCS: 96361 ×2; 96366 ×3; 96375; 96376; 96365; 99285; 36415; 93005; 93306; 85379; 80053 ×3; 82550; 83605 ×2; 83735; 84100; 84484; 85025 ×3; 85610; 85730; 87040; 87086; 87077; 87186; 76700; 93880; 70450; 71275; G0378 ×3; C8930; J1250; J2405 ×2; J0696 ×2; S0170 ×2; Q9950; Q9967; 81001; 93351

== ENCOUNTER → 2020-02-10 | Outpatient (CLI) | payer MEDICARE, BC ==
--- NOTE | 2020-02-10 14:20 | CT ---
EXAMINATION TYPE: CT abdomen pelvis w con DATE OF EXAM: 02/10/2020 COMPARISON: 05/10/2018 HISTORY: 84-year-old female C67.9 Bladder cancer TECHNIQUE: Contiguous axial scanning of the abdomen and pelvis following administration of 80 ml Isov ue 300 IV contrast. Delayed images through the kidneys and coronal/sagittal reconstructions performe d. CT DLP: 1744 mGycm Automated exposure control for dose reduction was used. FINDINGS: Heart upper limits of normal in size without pericardial effusion. Dense mitral annular calcification s and RCA coronary artery calcifications are present. Lung bases clear without pleural effusion. Small hiatal hernia. No focal liver lesion or biliary ductal dilatation. Cholecystectomy clips. Portal venous system is pa tent. Adrenal glands, spleen, and pancreas appear within normal limits. No focal renal lesion. Stable mild pelvicaliectasis with slightly patulous ureters. The previously me ntioned apparent narrowing of the mid to distal ureters, axial image 50 and axial image 47 on the rig ht and left sides, respectively, are unchanged. Status post bladder resection with ileal conduit at the level of the mid abdomen and right abdominal urostomy. No dilated small bowel, free fluid, or free air. No mesenteric or retroperitoneal lymphadenopathy. Mild to moderate stool. Sigmoid diverticulosis without pericolonic inflammatory change. No abnormal fluid collection pelvis or pelvic lymphadenopathy. Bones: Bilateral hamstrings tendinopathy. Osteitis pubis. Moderate degenerative change of both hips. 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 IMPRESSION: 1. REDEMONSTRATED DIVERTING UROSTOMY WITH ILEAL CONDUIT AFTER PREVIOUS BLADDER RESECTION. 2. THE PREVIOUSLY MENTIONED APPARENT NARROWING/MILD STENOSES OF THE MID TO DISTAL URETERS APPEARS UNC HANGED WITH STABLE MILD BILATERAL PELVICALIECTASIS. 3. NO SPECIFIC FINDINGS OF NEOPLASTIC RECURRENCE. 4. SIGMOID DIVERTICULOSIS WITHOUT ACUTE DIVERTICULITIS. SMALL HIATAL HERNIA.
== END | disposition home or self-care (01) ==
LOC: RADCTMAIN 09:23
PROVIDERS: ATTEND Urology
DX: N28.89 Other specified disorders of kidney and ureter (principal); K44.9 Diaphragmatic hernia without obstruction or gangrene; K57.30 Diverticulosis of large intestine without perforation or abscess without bleeding; C67.9 Malignant neoplasm of bladder, unspecified
CPT/HCPCS: 82565; 84520; 74177; 36415; Q9967

== ENCOUNTER → 2020-02-19 | Outpatient (CLI) | payer MEDICARE, BC ==
--- NOTE | 2020-02-20 10:46 | USB ---
Reason for exam: clinical finding. History: Patient is postmenopausal, has history of other cancer at age 78, and has history of breast cancer at age 77. Mastectomy of the right breast, May 24, 2013. Malignant right mammotome panel of the right breast, May 15, 2013. Taking antineoplastic for 4 years beginning at age 77. Physical Findings: Nurse did not find any significant physical abnormalities on exam. US Breast Axilla RT Right breast axilla ultrasound including focal area of concern, retroareolar and axilla demonstrates a 0.5 x 0.3 x 0.4cm oval, lobular, hypoechoic lesion at the axilla, stable from 12/11/18 and 08/27/19. These results were verbally communicated with the patient and result sheet given to the patient on 02/19/20. ASSESSMENT: Benign, BI-RAD 2 RECOMMENDATION: Routine screening mammogram of both breasts in 10 months. Back on schedule for November 2020.
== END | disposition home or self-care (01) ==
LOC: RADUSWWP 09:25
PROVIDERS: ATTEND Internal Medicine Hematology & Oncology
DX: Z08 Encounter for follow-up examination after completed treatment for malignant neoplasm (principal); Z85.3 Personal history of malignant neoplasm of breast

== ENCOUNTER → 2020-09-04 | Outpatient (CLI) | payer MEDICARE, BC ==
--- NOTE | 2020-09-04 15:37 | USB ---
Right axillary ultrasound INDICATION: Right palpable abnormality COMPARISON: 12/11/2018, 02/19/2020 FINDINGS: The right axilla was scanned with ultrasound. There is a likely cyst in the right axilla measuring 0. 4 x 0.3 x 0.5 cm which is not significantly changed November 2018. IMPRESSION: No sonographic evidence for malignancy. Left mammogram is recommended in 12 months. Patient is status post right mastectomy. BI-RADS 2, benign.
== END | disposition home or self-care (01) ==
LOC: RADMAMWWP 14:14
PROVIDERS: ATTEND Internal Medicine Hematology & Oncology
DX: R92.8 Other abnormal and inconclusive findings on diagnostic imaging of breast (principal); Z90.11 Acquired absence of right breast and nipple
CPT/HCPCS: 77065; 76642; G0279; 77061

== ENCOUNTER → 2021-09-06 | Outpatient (CLI) | payer MEDICARE, BC ==
--- NOTE | 2021-09-06 15:16 | MM ---
Reason for Exam: Additional evaluation requested from prior study. Last screening mammogram was performed 12 month(s) ago. Patient History: Menarche at age 15. First Full-Term at age 26. Left ovary removed at age 27. Right ovary removed at age 27. Hysterectomy at age 27. Postmenopausal. Breast cancer, right, age 77. Other cancer, age 78. Previous chemotherapy at age 78. 05/24/2013, Mastectomy on the Right side. 05/15/2013, Malignant Core Biopsy on the right side. Prior Study Comparison: 12/11/2018 Left Diagnostic Mammogram, [facility]. 08/27/2019 Left Diagnostic Mammogram, [facility]. 09/04/2020 Left Diagnostic Mammogram, [facility]. Tissue Density: Left: There are scattered fibroglandular densities. Findings: Analyzed By CAD. Pattern appears stable. Benign vascular calcification is present. There are some scattered benign-appearing calcifications. No significant interval change is evident. No suspicious spiculated or lobulated mass cluster microcalcifications or architectural distortion or other secondary signs of malignancy are radiographically apparent. Overall Assessment: Benign, BI-RAD 2 Management: Diagnostic Mammogram of the left breast in 1 year. A clinical breast exam by your physician is recommended on an annual basis and results should be correlated with mammographic findings. This exam should not preclude additional follow-up of suspicious palpable abnormalities. Results were given to the patient verbally at the time of exam. Electronically signed and approved by: Chu Blackwell D.O. Radiologis
--- NOTE | 2021-09-06 15:36 | USB ---
Reason for Exam: Clinical finding. Patient History: Menarche at age 15. First Full-Term at age 26. Left ovary removed at age 27. Right ovary removed at age 27. Hysterectomy at age 27. Postmenopausal. Breast cancer, right, age 77. Other cancer, age 78. Previous chemotherapy at age 78. 05/24/2013, Mastectomy on the Right side. 05/15/2013, Malignant Core Biopsy on the right side. Prior Study Comparison: 12/11/2018 Left Diagnostic Mammogram, [facility]. 08/27/2019 Left Diagnostic Mammogram, [facility]. 09/04/2020 Left Diagnostic Mammogram, [facility]. Findings: The axilla of the right breast was scanned. No suspicious solid areas within the right axilla are evident. There is a small cystlike structure with good through transmission and posterior wall enhancement measuring 0.5 x 0.5 x 0.2 cm. This was present previously no suspicious lymphadenopathy is evident.. Overall Assessment: Benign, BI-RAD 2 Management: Diagnostic Mammogram of the left breast in 1 year. A clinical breast exam by your physician is recommended on an annual basis and results should be correlated with mammographic findings. Electronically signed and approved by: Chu Blackwell D.O. Radiologis
== END | disposition home or self-care (01) ==
LOC: RADMAMWWP 14:18
PROVIDERS: ATTEND Family Medicine
DX: R92.8 Other abnormal and inconclusive findings on diagnostic imaging of breast (principal); Z78.0 Asymptomatic menopausal state; Z85.3 Personal history of malignant neoplasm of breast
CPT/HCPCS: 77065; 76642; G0279; 77061

== ENCOUNTER → 2022-09-14 | Outpatient (CLI) | payer MEDICARE, BC ==
--- NOTE | 2022-09-14 13:35 | MM ---
Reason for Exam: Hx of breast cancer, mastectomy. Last mammogram was performed 1 year(s) and 1 month(s) ago. Patient History: Menarche at age 15. First Full-Term at age 26. Left ovary removed at age 27. Right ovary removed at age 27. Hysterectomy at age 27. Postmenopausal. Breast cancer, right, age 77. Other cancer, age 78. Previous chemotherapy at age 78. 05/24/2013, Mastectomy on the Right side. 05/15/2013, Malignant Core Biopsy on the right side. Prior Study Comparison: 08/27/2019 Left Diagnostic Mammogram, [facility]. 09/04/2020 Left Diagnostic Mammogram, [facility]. 09/06/2021 Left MG 3D diag mammo w/cad , [facility]. Tissue Density: Left: There are scattered fibroglandular densities. Findings: Analyzed By CAD. No new suspicious mass or group of calcifications within the left breast. Benign vascular callus cages are present. Scattered benign-appearing calcifications again present. Overall Assessment: Benign, BI-RAD 2 Management: Screening Mammogram of the left breast in 1 year. A clinical breast exam by your physician is recommended on an annual basis and results should be correlated with mammographic findings. This exam should not preclude additional follow-up of suspicious palpable abnormalities. Results were given to the patient verbally at the time of exam. Note on Krystal scores and lifetime risk: 1. A Krystal score greater than 3% is considered moderate risk. If this is the case, consider specialist referral to assess eligibility for a risk reducing agent. If overall lifetime risk for the development of breast cancer is 20% or higher, the patient may qualify for future screening with alternating mammogram and breast MRI. Electronically signed and approved by: Tavo Dubose D.O.
--- NOTE | 2022-09-14 14:22 | USB ---
Reason for Exam: Follow-up at short interval from prior study. Patient History: Menarche at age 15. First Full-Term at age 26. Left ovary removed at age 27. Right ovary removed at age 27. Hysterectomy at age 27. Postmenopausal. Breast cancer, right, age 77. Other cancer, age 78. Previous chemotherapy at age 78. 05/24/2013, Mastectomy on the Right side. 05/15/2013, Malignant Core Biopsy on the right side. Prior Study Comparison: 08/27/2019 Left Diagnostic Mammogram, [facility]. 09/04/2020 Left Diagnostic Mammogram, [facility]. 09/06/2021 Left MG 3D diag mammo w/cad LT, [facility]. Findings: Right axillary ultrasound was performed with multiple grayscale and color images. Relatively stable thin-walled anechoic cyst with posterior acoustical enhancement in the right axilla measuring 0.6 x 0.6 x 0.4 cm, previously 0.5 x 0.5 x 0.2 cm. No new solid lesions. No evident lymphadenopathy. Overall Assessment: Benign, BI-RAD 2 Management: Screening Mammogram of the left breast in 1 year. A clinical breast exam by your physician is recommended on an annual basis and results should be correlated with mammographic findings. This exam should not preclude additional follow-up of suspicious palpable abnormalities. Results were given to the patient verbally at the time of exam. Electronically signed and approved by: Tavo Dubose D.O.
== END | disposition home or self-care (01) ==
LOC: RADMAMWWP 12:55
PROVIDERS: ATTEND Family Medicine
DX: C50.911 Malignant neoplasm of unspecified site of right female breast (principal); R92.1 Mammographic calcification found on diagnostic imaging of breast; Z78.0 Asymptomatic menopausal state
CPT/HCPCS: 77065; 76642; G0279; 77061

== ENCOUNTER → 2024-03-13 | Outpatient (CLI) | payer MEDICARE, BC ==
--- NOTE | 2024-03-13 14:38 | MM ---
Reason for Exam: Screening (asymptomatic). Last mammogram was performed 1 year(s) and 5 month(s) ago. Patient History: Menarche at age 15. First Full-Term at age 26. Left ovary removed at age 27. Right ovary removed at age 27. Hysterectomy at age 27. Postmenopausal. Breast cancer, right, age 77. Other cancer, age 78. Previous chemotherapy at age 78. 05/24/2013, Mastectomy on the Right side. 05/15/2013, Malignant Core Biopsy on the right side. Prior Study Comparison: 09/04/2020 Left Diagnostic Mammogram, [facility]. 09/06/2021 Left MG 3D diag mammo w/cad LT, [facility]. 09/14/2022 Left MG 3D diag mammo w/cad LT, [facility]. Tissue Density: Left: There are scattered areas of fibroglandular density. Findings: Analyzed By CAD. Left breast: There is no suspicious group of microcalcifications or new suspicious mass. Benign-appearing calcifications left breast. Overall Assessment: Negative, BI-RAD 1 Management: Screening Mammogram of both breasts in [address] [facility] will attempt to contact patient to return for supplemental views and ultrasound if indicated. Patient should continue monthly self-breast exams. A clinical breast exam by your physician is recommended on an annual basis. This exam should not preclude additional follow-up of suspicious palpable abnormalities. Note on Krystal scores and lifetime risk: 1. A Krystal score greater than 3% is considered moderate risk. If this is the case, consider specialist referral to assess eligibility for a risk reducing agent. 2. If overall lifetime risk for the development of breast cancer is 20% or higher, the patient may qualify for future screening with alternating mammogram and breast MRI. [facility], , 03/13/2024 2:35 PM. Electronically signed and approved by: Venkatesh Banks DO
== END | disposition home or self-care (01) ==
LOC: RADMAMWWP 12:05
PROVIDERS: ATTEND Family Medicine
DX: Z12.31 Encounter for screening mammogram for malignant neoplasm of breast (principal); R92.322 Mammographic fibroglandular density, left breast; R92.1 Mammographic calcification found on diagnostic imaging of breast; Z78.0 Asymptomatic menopausal state; Z85.3 Personal history of malignant neoplasm of breast
CPT/HCPCS: 77067

== ENCOUNTER 2024-05-08 15:22 | Observation (INO) | payer MEDICARE, BC ==
[2024-05-08 16:06] LABS: Basophils % (A) 0 %; Eosinophils # (A) 0.1 k/uL (0-0.7); Eosinophils % (A) 2 %; HCT 48.6 % (34.0-46.0); Lymphocytes % (A) 13 %; MCH 31.5 pg (25.0-35.0); MCHC 32.9 g/dL (31.0-37.0); MCV 95.8 fL (80.0-100.0); Mean Platelet Volume 8.1; Monocytes # (A) 0.6 k/uL (0-1.0); Monocytes % (A) 8 %; Neutrophils # (A) 5.9 k/uL (1.3-7.7); Neutrophils % (A) 76 %; Platelet Count 266 k/uL (150-450); RBC 5.07 m/uL (3.80-5.40); RDW 12.9 % (11.5-15.5); WBC 7.7 k/uL (3.8-10.6)
--- NOTE | 2024-05-08 16:29 | XR ---
EXAMINATION TYPE: XR chest 2V DATE OF EXAM: 05/08/2024 CLINICAL INDICATION: Female, 88 years old with history of syncope, TECHNIQUE: Frontal and lateral views of the chest are obtained. COMPARISON: Chest CT September 21, 2019 FINDINGS: There is some chronic parenchymal changes bilaterally without suspicious new focal air spa ce opacity, pleural effusion, or pneumothorax seen. The cardiac silhouette size is upper limits of n ormal. Post surgical changes in the cervical spine are partially imaged. IMPRESSION: No acute cardiopulmonary process. [facility], , 05/08/2024 4:26 PM
[2024-05-08 16:45] LABS: Appearance,Urine Cloudy (Clear); Bacteria,Urine Many /hpf; Bilirubin,Urine Negative (Negative); Blood,Urine Negative (Negative); Color,Urine Light Yellow; Glucose,Urine (UA) Negative (Negative); Ketones,Urine Negative (Negative); Leukocyte Esterase,Urine Large (Negative); Mucus,Urine Rare /hpf; Nitrite,Urine Negative (Negative); Protein,Urine Trace (Negative); RBC,Urine 7 /hpf (0-5); Specific Gravity,Urine 1.011 (1.001-1.035); Urobilinogen,Urine <2.0 mg/dL (<2.0); WBC,Urine 79 /hpf (0-5)
[2024-05-08] MEDS: SODIUM CHLORIDE 0.9% 1,000 ML IV STA (16:50)
[2024-05-08 16:59] LABS: Influenza A Not Detected (Not Detectd); Influenza B Not Detected (Not Detectd); RSV Not Detected (Not Detectd)
[2024-05-08 17:00] LABS: ALT 18 U/L (4-34); AST 27 U/L (14-36); African American GFR (CKD) 60 (>60 ml/min/1.73 sqM); Albumin 4.5 g/dL (3.5-5.0); Alkaline Phosphatase 130 U/L (38-126); Anion Gap 12 mmol/L; Blood Urea Nitrogen 18 mg/dL (7-17); Calcium 10.1 mg/dL (8.4-10.2); Carbon Dioxide 20 mmol/L (22-30); Chloride 98 mmol/L (98-107); Glucose 145 mg/dL (74-99); Non-African American GFR(CKD) 52 (>60 ml/min/1.73 sqM); Potassium 4.6 mmol/L (3.5-5.1); Sodium 130 mmol/L (137-145); Total Bilirubin 0.8 mg/dL (0.2-1.3)
--- NOTE | 2024-05-08 17:07 | ED ---
General Adult HPI - General Chief complaint: Syncope Stated complaint: Syncope Time Seen by Provider: 05/08/24 15:22 Source: patient, EMS, RN notes reviewed, old records reviewed Mode of arrival: EMS Limitations: no limitations - History of Present Illness Initial comments: Patient is an 88-year-old female with past medical history remarkable for hypertension, hyperlipidemia, thyroid disorder, urostomy. Follows up with Dr. Link. Apparently was seen here today for evaluation of her urostomy as she has noticed pus coming out of it. Was seen with Dr. Link. Left and went to [email or web address] when she began having lunch. Suddenly she became unresponsive and had a syncopal episode at the table where her head went down. This lasted for min utes. Patient did become more responsive once EMS arrived and start transferring her. Unknown exact downtime. She has no complaints currently. States she felt fine before. Denies headache, head injury. Is not on blood thinners. Denies chest pain or shortness of breath. Denies any history of cardiac arrhythmias. Denies nausea vomiting diarrhea. Only complaint is the recent pus in her urostomy. Presents for further evaluation at this time.Patient was called in by EMS as possible STEMI due to the left bundle branch findings however this is chronic. She has no ACS symptoms.Patient is not on blood thinners. She did not injure her head. - Related Data Home Medications Medication Instructions Recorded Confirmed Ascorbic Acid [Vitamin C] 500 mg PO DAILY 07/30/13 05/08/24 Cholecalciferol [Vitamin D3 (25 25 mcg PO DAILY 07/30/13 05/08/24 Mcg = 1000 Iu)] Aspirin EC [Ecotrin Low Dose] 81 mg PO HS 09/21/19 05/08/24 Losartan Potassium [Cozaar] 25 mg PO BID 09/21/19 05/08/24 [place]-3 Fatty Acids/Fish Oil [Fish 1 cap PO HS 09/21/19 05/08/24 Oil 1,000 mg Softgel] Omeprazole 40 mg PO Q2D@2100 09/21/19 05/08/24 calcium polycarbophiL [Fibercon] 1,250 mg PO PC-BRKFST 09/21/19 05/08/24 Atorvastatin [Lipitor] 80 mg PO HS 05/08/24 05/08/24 Gabapentin [Neurontin] 100 mg PO TID 05/08/24 05/08/24 Levothyroxine Sodium [Synthroid] 100 mcg PO AC-BRKFST 05/08/24 05/08/24 Multivitamins, Thera [Multivitamin 1 tab PO DAILY 05/08/24 05/08/24 (formulary)] Turmeric(Unknown Dose) 1 tab PO DAILY 05/08/24 05/08/24 Allergies Allergy/AdvReac Type Severity Reaction Status Date / Time No Known Allergies Allergy Verified 05/08/24 18:46 Review of Systems ROS Statement: Those systems with pertinent positive or pertinent negative responses have been documented in the HPI. Review of Systems: CONST: Denies fever EYES: Denies blurry vision ENT: Denies nasal congestion C/V: Denies Chest pain RESP: Denies shortness of breath GI: Denies abdominal pain : Denies dysuria SKIN: Denies rash. MSK: Denies joint pain. NEURO: Denies headache ROS Other: All systems not noted in ROS Statement are negative. Past Medical History Past Medical History: Cancer, GERD/Reflux, Hyperlipidemia, Hypertension, Thyroid Disorder Additional Past Medical History / Comment(s): HEART MURMUR, H. PYLORI, CA BREAST AND BLADDER, RECEIVING CHEMOTHERAPY FOR BLADDER CANCER History of Any Multi-Drug Resistant Organisms: None Reported Past Surgical History: Bladder Surgery, Breast Surgery, Cholecystectomy, Heart Catheterization With Stent, Joint Replacement, Orthopedic Surgery, Tonsillectomy Additional Past Surgical History / Comment(s): RT CARPAL TUNNEL, LEFT KNEE REPLACEMENT, ARTHROSCOPY RT KNEE, BACK SURGERY (3,4,5), BLADDER POLYPS, OVARY REMOVED, RT MASTECTOMY (MAY 2013) Cath- 3 stent, 2017 Past Anesthesia/Blood Transfusion Reactions: No Reported Reaction Additional Past Anesthesia/Blood Transfusion Reaction / Comment(s): "FACE HOT" Date of Last Stent Placement:: 12/2017 Past Psychological History: No Psychological Hx Reported Smoking Status: Never smoker Past Alcohol Use History: None Reported Past Drug Use History: None Reported - Past Family History Father Family Medical History: Cancer Additional Family Medical History / Comment(s): COLON Mother Family Medical History: Cancer Additional Family Medical History / Comment(s): COLON AND KIDNEY CA General Exam - General Exam Comments Initial Comments: General: Appears in no acute distress. HEAD: Normal with no signs of head trauma. EYES: PERRLA, EOMI, conjunctiva normal, no discharge. Pupils are 3 mm and equal bilaterally. ENT: Hearing grossly intact, normal oropharynx. RESPIRATORY: Clear breath sounds bilaterally. No wheezes, rales, or rhonchi. C/V: Regular rate and rhythm. S1 and S2 auscultated, no edema, peripheral pulses 2+ and intact throughout ABD: Abd is soft, nontender, nondistended. Urostomy bag is present and is draining adequately. EXT: Normal range of motion, no obvious deformity SKIN: No rashes or lesions observed on exposed skin. NEURO: Alert and oriented x 4. Cranial nerves II-XII intact. No focal sensory or strength deficits. NIH is 0. GCS 15. Limitations: no limitations Course Vital Signs 05/08/24 05/08/24 05/08/24 15:30 17:35 18:40 Temperature 97.8 F Pulse Rate 79 86 80 Respiratory 18 18 18 Rate Blood Pressure 117/84 150/86 154/103 O2 Sat by Pulse 97 97 96 Oximetry 05/08/24 05/08/24 19:34 22:05 Temperature 98.2 F Pulse Rate 89 95 Respiratory 18 16 Rate Blood Pressure 148/85 154/91 O2 Sat by Pulse 98 97 Oximetry Medical Decision Making - Medical Decision Making Was pt. sent in by a medical professional or institution (, PA, HAULAGE BOSS, urgent care, hospital, or custodial...) When possible be specific @ -No Did you speak to anyone other than the patient for history (EMS, parent, family, police, friend...)? What history was obtained from this source @ -No Did you review nursing and triage notes (agree or disagree)? Why? @ -I reviewed and agree with nursing and triage notes Were old charts reviewed (outside hosp., previous admission, EMS record, old EKG, old radiological studies, urgent care reports/EKG's, custodial records)? Report findings @ -Reviewed EKG from September 2019 which showed chronic left bundle branch block redemonstrated on today's EKG. Differential Diagnosis (chest pain, altered mental status, abdominal pain women, abdominal pain men, vaginal bleeding, weakness, fever, dyspnea, syncope, headache, dizziness, GI bleed, back pain, seizure, CVA, palpatations, mental health, musculoskeletal)? @ -Differential Syncope: Valvular disease, hypertrophic cardiomyopathy, pulmonary embolism, tamponade, tachycardia, bradycardia, MT, hypovolemia, hemorrhage, dissection, anemia, intracranial hemorrhage, seizure, hypoglycemia, carbon monoxide poisoning, this is not meant to be an all-inclusive list. EKG interpreted by me (3pts min.). @ -As above X-rays interpreted by me (1pt min.). @ -Chest x-ray shows no obvious acute cardiopulmonary process. CT interpreted by me (1pt min.). @ -CT brain reveals no obvious acute intracranial process or injury. Possible left mastoid infection or mastoiditis if clinically correlated, which she does not. She has no pain or tenderness. No concern for mastoiditis. U/S interpreted by me (1pt. min.). @ -None done What testing was considered but not performed or refused? (CT, X-rays, U/S, labs)? Why? @ -None What meds were considered but not given or refused? Why? @ -None Did you discuss the management of the patient with other professionals (professionals i.e. , PA, HAULAGE BOSS, lab, RT, psych nurse, elementary school social worker, duralumin metalworker, teacher, ground defence officer, embedded case manager)? Give summary @ -Discussed with the admitting provider, Dr. Overton who accepted the admission. Was smoking cessation discussed for >3mins.? @ -No Was critical care preformed (if so, how long)? @ -No Were there social determinants of health that impacted care today? How? (Homelessness, low income, unemployed, alcoholism, drug addiction, transportation, low edu. Level, literacy, decrease access to med. care, long-term, rehab)? @ -No Was there de-escalation of care discussed even if they declined (Discuss DNR or withdrawal of care, Hospice)? DNR status @ -No What co-morbidities impacted this encounter? (DM, HTN, Smoking, COPD, CAD, C ancer, CVA, ARF, Chemo, Hep., AIDS, mental health diagnosis, sleep apnea, morbid obesity)? @ -Urostomy bag, left bundle branch block Was patient admitted / discharged? Hospital course, mention meds given and route, prescriptions, significant lab abnormalities, going to OR and other pertinent info. @ -Patient presents to the emergency department complaining of syncopal episode. Initially thought might be a STEMI according to EMS however patient's left bundle branch block is chronic with no evidence of STEMI criteria based on Sgarbossa criteria. Patient has no ACS symptoms either. We will obtain general syncopal workup. I do suspect this is likely urinary infection considering she has been having pus out of her urine has not been on antibiotics. She was in agreement this plan. Vitals within acceptable limits. She has no complaints at this time. She will be given IV fluids. EKG shows left bundle branch block with no evidence of acute ischemia. Chest x- ray unremarkable. CT brain unremarkable other than possible left-sided mastoiditis if clinically correlated which patient does not have any tenderness or evidence of mastoiditis at this time. Labs returned remarkable for suspected UTI with a large amount of leukocyte esterase, 79 WBCs as well as many bacteria present. Viral swabs negative. I discussed results with patient. She is feeling improved. However due to the syncopal episode as well as her age. After discussion with her and family we will admit the patient for IV antibiotics and evaluation by her urologist, Dr. Link or one of his partners. She was in agreement this plan. Discussed the case with the admitting provider, Dr. Overton who accepted the ad mission. Undiagnosed new problem with uncertain prognosis? @ -No Drug Therapy requiring intensive monitoring for toxicity (Heparin, Nitro, Insulin, Cardizem)? @ -No Were any procedures done? @ -No Diagnosis/symptom? @ -Syncope, UTI Acute, or Chronic, or Acute on Chronic? @ -Acute Uncomplicated (without systemic symptoms) or Complicated (systemic symptoms)? @ -Complicated Side effects of treatment? @ -No Exacerbation, Progression, or Severe Exacerbation? @ -No Poses a threat to life or bodily function? How? (Chest pain, USA, MT, pneumonia, PE, COPD, DKA, ARF, appy, cholecystitis, CVA, Diverticulitis, Homicidal, Suicidal, threat to staff... and all critical care pts) @ -Yes - Lab Data Result diagrams: 05/08/24 15:54 05/08/24 16:08 Lab Results 05/08/24 05/08/24 05/08/24 Range/Units 15:53 15:54 16:08 WBC 7.7 (3.8-10.6) k/uL RBC 5.07 (3.80-5.40) m/uL Hgb 16.0 (11.4-16.0) gm/dL Hct 48.6 H (34.0-46.0) % MCV 95.8 (80.0-100.0) fL MCH 31.5 (25.0-35.0) pg MCHC 32.9 (31.0-37.0) g/dL RDW 12.9 (11.5-15.5) % Plt Count 266 (150-450) k/uL MPV 8.1 Neutrophils % 76 % Lymphocytes % 13 % Monocytes % 8 % Eosinophils % 2 % Basophils % 0 % Neutrophils # 5.9 (1.3-7.7) k/uL Lymphocytes # 1.0 (1.0-4.8) k/uL Monocytes # 0.6 (0-1.0) k/uL Eosinophils # 0.1 (0-0.7) k/uL Basophils # 0.0 (0-0.2) k/uL Sodium 130 L (137-145) mmol/L Potassium 4.6 (3.5-5.1) mmol/L Chloride 98 (98-107) mmol/L Carbon Dioxide 20 L (22-30) mmol/L Anion Gap 12 mmol/L BUN 18 H (7-17) mg/dL Creatinine 0.98 (0.52-1.04) mg/dL Est GFR (CKD-EPI)AfAm 60 (>60 ml/min/1.73 sqM) Est GFR (CKD-EPI)NonAf 52 (>60 ml/min/1.73 sqM) Glucose 145 H (74-99) mg/dL Calcium 10.1 (8.4-10.2) mg/dL Magnesium 2.0 (1.6-2.3) mg/dL Total Bilirubin 0.8 (0.2-1.3) mg/dL AST 27 (14-36) U/L ALT 18 (4-34) U/L Alkaline Phosphatase 130 H (38-126) U/L Troponin I (0.000-0.034) ng/mL Total Protein 7.0 (6.3-8.2) g/dL Albumin 4.5 (3.5-5.0) g/dL Urine Color Urine Appearance (Clear) Urine pH (5.0-8.0) Ur Specific [place] (1.001-1.035) Urine Protein (Negative) Urine Glucose (UA) (Negative) Urine Ketones (Negative) Urine Blood (Negative) Urine Nitrite (Negative) Urine Bilirubin (Negative) Urine Urobilinogen (<2.0) mg/dL Ur Leukocyte Esterase (Negative) Urine RBC (0-5) /hpf Urine WBC (0-5) /hpf Urine Bacteria (None) /hpf Urine Mucus (None) /hpf Influenza Type A (PCR) Not Detected (Not Detectd) Influenza Type B (PCR) Not Detected (Not Detectd) RSV (PCR) Not Detected (Not Detectd) SARS-CoV-2 (PCR) Not Detected (Not Detectd) 05/08/24 05/08/24 Range/Units 16:08 16:27 WBC (3.8-10.6) k/uL RBC (3.80-5.40) m/uL Hgb (11.4-16.0) gm/dL Hct (34.0-46.0) % MCV (80.0-100.0) fL MCH (25.0-35.0) pg MCHC (31.0-37.0) g/dL RDW (11.5-15.5) % Plt Count (150-450) k/uL MPV Neutrophils % % Lymphocytes % % Monocytes % % Eosinophils % % Basophils % % Neutrophils # (1.3-7.7) k/uL Lymphocytes # (1.0-4.8) k/uL Monocytes # (0-1.0) k/uL Eosinophils # (0-0.7) k/uL Basophils # (0-0.2) k/uL Sodium (137-145) mmol/L Potassium (3.5-5.1) mmol/L Chloride (98-107) mmol/L Carbon Dioxide (22-30) mmol/L Anion Gap mmol/L BUN (7-17) mg/dL Creatinine (0.52-1.04) mg/dL Est GFR (CKD-EPI)AfAm (>60 ml/min/1.73 sqM) Est GFR (CKD-EPI)NonAf (>60 ml/min/1.73 sqM) Glucose (74-99) mg/dL Calcium (8.4-10.2) mg/dL Magnesium (1.6-2.3) mg/dL Total Bilirubin (0.2-1.3) mg/dL AST (14-36) U/L ALT (4-34) U/L Alkaline Phosphatase (38-126) U/L Troponin I <0.012 (0.000-0.034) ng/mL Total Protein (6.3-8.2) g/dL Albumin (3.5-5.0) g/dL Urine Color Light Yellow Urine Appearance Cloudy H (Clear) Urine pH 7.0 (5.0-8.0) Ur Specific [place] 1.011 (1.001-1.035) Urine Protein Trace H (Negative) Urine Glucose (UA) Negative (Negative) Urine Ketones Negative (Negative) Urine Blood Negative (Negative) Urine Nitrite Negative (Negative) Urine Bilirubin Negative (Negative) Urine Urobilinogen <2.0 (<2.0) mg/dL Ur Leukocyte Esterase Large H (Negative) Urine RBC 7 H (0-5) /hpf Urine WBC 79 H (0-5) /hpf Urine Bacteria Many H (None) /hpf Urine Mucus Rare H (None) /hpf Influenza Type A (PCR) (Not Detectd) Influenza Type B (PCR) (Not Detectd) RSV (PCR) (Not Detectd) SARS-CoV-2 (PCR) (Not Detectd) - EKG Data -: EKG Interpreted by Me EKG Comments: 12-lead Electrocardiogram Interpretation Note EKG was reviewed and interpreted by myself. 12-lead ECG performed at 1528 is interpreted by me as revealing left bundle branch block and normal sinus rhythm with first-degree AV block at a rate of 77 beats per minute. [place] is leftward deviated. [place] interval is 272 ms, QRS durations 169 ms, QTc is 443 ms. Does not meet STEMI criteria based on Sgarbossa's criteria. Left bundle branch block is chronic seen on prior EKGs from September 2019.. There were no acute ST or T wave abnormalities to suggest myocardial ischemia or injury. R wave progression a cross the precordium was delayed. By my interpretation this EKG is non- diagnostic for acute ischemia. Disposition Clinical Impression: Syncope, UTI (urinary tract infection) Disposition: ADMITTED IP TO THIS HOSP Condition: Stable Time of Disposition: 17:55
--- NOTE | 2024-05-08 17:09 | CT ---
EXAMINATION TYPE: CT brain wo con DATE OF EXAM: 05/08/2024 COMPARISON: CT brain September 22, 2019 CLINICAL INDICATION: Female, 88 years old with history of syncope, Syncope. TECHNIQUE: CT scan of the head is performed without contrast. CT DLP: 1109.4 mGycm. Automated Exposure Control for Dose Reduction was Utilized. FINDINGS: There is no acute intracranial hemorrhage or midline shift identified. There is mild to m oderate diffuse ventricular and sulcal prominence redemonstrated. There is moderate low-attenuation in the periventricular white matter redemonstrated. Bilateral aphakia is now seen. The visualized sin uses are clear. Partially opacified left mastoid air cells are now present. Vascular calcification of the distal internal carotid arteries bilaterally is redemonstrated. IMPRESSION: No acute intracranial hemorrhage or midline shift. There is [id number] diffuse ag e-related cerebral atrophy and chronic small vessel ischemic change redemonstrated. There is new opac ification of left mastoid air cells raises concern for left-sided mastoiditis in the appropriate clin ical setting, correlate clinically. [facility], , 05/08/2024 5:06 PM
[2024-05-08] MEDS ORDERED: ACETAMINOPHEN TAB 325 MG TAB PO PRN (18:06)
[2024-05-08] MEDS ORDERED: NALOXONE 0.4 MG/ML 1 ML VIAL IV PRN (18:06)
[2024-05-09] MEDS: LOSARTAN 25 MG TAB PO SCH (02:23)
[2024-05-09] MEDS: ASPIRIN 81 MG PO SCH (02:23)
[2024-05-09] MEDS: ATORVASTATIN 80 MG TAB PO SCH (02:25)
[2024-05-09 04:35] LABS: Basophils % (A) 0 %; Eosinophils # (A) 0.2 k/uL (0-0.7); Eosinophils % (A) 2 %; HCT 43.3 % (34.0-46.0); HGB 14.2 gm/dL (11.4-16.0); Lymphocytes # (A) 1.4 k/uL (1.0-4.8); Lymphocytes % (A) 15 %; MCH 31.1 pg (25.0-35.0); MCHC 32.7 g/dL (31.0-37.0); MCV 95.1 fL (80.0-100.0); Mean Platelet Volume 7.5; Monocytes # (A) 0.8 k/uL (0-1.0); Monocytes % (A) 9 %; Neutrophils # (A) 6.8 k/uL (1.3-7.7); Neutrophils % (A) 72 %; Platelet Count 245 k/uL (150-450); RBC 4.55 m/uL (3.80-5.40); RDW 12.7 % (11.5-15.5); WBC 9.5 k/uL (3.8-10.6)
[2024-05-09 04:47] LABS: ALT 15 U/L (4-34); AST 23 U/L (14-36); African American GFR (CKD) 80 (>60 ml/min/1.73 sqM); Albumin 3.6 g/dL (3.5-5.0); Albumin/Globulin Ratio 1.5; Alkaline Phosphatase 121 U/L (38-126); Anion Gap 8 mmol/L; Blood Urea Nitrogen 16 mg/dL (7-17); Carbon Dioxide 22 mmol/L (22-30); Chloride 101 mmol/L (98-107); Globulin 2.4 g/dL; Glucose 91 mg/dL (74-99); Non-African American GFR(CKD) 69 (>60 ml/min/1.73 sqM); Potassium 4.1 mmol/L (3.5-5.1); Sodium 131 mmol/L (137-145); Total Bilirubin 0.8 mg/dL (0.2-1.3)
[2024-05-09 04:48] LABS: Partial Thromboplastin Time 25.2 sec (22.0-30.0)
[2024-05-09 06:09] LABS: Glucose,Whole Blood 116 mg/dL (70-110)
[2024-05-09] MEDS: LEVOTHYROXINE 100 MCG TAB PO SCH (08:14)
[2024-05-09] MEDS: GABAPENTIN 100 MG CAP PO SCH (08:14)
--- NOTE | 2024-05-09 10:08 | P.HPIM ---
History of Present Illness H&P Date: 05/09/24 Oxana Barros is an 88-year-old female patient of Dr. Miguel who presented to the ER after a syncopal episode. Patient was out with her family at a restaurant when she became lightheaded and lost consciousness. Patient has a past medical history of bladder cancer in which she has a urostomy and follows with urology services, GERD, hyperlipidemia, hypertension, thyroid disorder. Chest x-ray completed in ER showing no acute cardiopulmonary process. Head CT completed showing no acute intracranial hemorrhage or midline shift there is mild to moderate diffuse age-related cerebral atrophy and chronic small vessel ischemic changes. EKG completed showing sinus rhythm with first-degree AV blo ck. Lab work showing white blood cell 7.7, hemoglobin 16.0, creatinine 0.98 bun 18. UA positive for urinary tract infection. Influenza RSV and COVID-19 negative. At this time patient will be started on IV antibiotics for urinary tract infection will consult neurology and cardiology services for further investigation into syncopal episode. Current vital signs temp 97.7, heart rate 71, respiratory rate 17, blood pressure 135/91 with a pulse ox of 98% on room air. Patient denies chest pain or shortness of breath. Patient denies nausea vomiting or diarrhea. Patient denies any urinary burning or frequency Review of Systems Please refer to HPI otherwise unremarkable Past Medical History Past Medical History: Cancer, GERD/Reflux, Hyperlipidemia, Hypertension, Thyroid Disorder Additional Past Medical History / Comment(s): HEART MURMUR, H. PYLORI, CA BREAST AND BLADDER, RECEIVING CHEMOTHERAPY FOR BLADDER CANCER History of Any Multi-Drug Resistant Organisms: None Reported Past Surgical History: Bladder Surgery, Breast Surgery, Cholecystectomy, Heart Catheterization With Stent, Joint Replacement, Orthopedic Surgery, Tonsillectomy Additional Past Surgical History / Comment(s): RT CARPAL TUNNEL, LEFT KNEE REPLACEMENT, ARTHROSCOPY RT KNEE, BACK SURGERY (3,4,5), BLADDER POLYPS, OVARY REMOVED, RT MASTECTOMY (MAY 2013) Cath- 3 stent, 2018 Past Anesthesia/Blood Transfusion Reactions: No Reported Reaction Additional Past Anesthesia/Blood Transfusion Reaction / Comment(s): "FACE HOT" Date of Last Stent Placement:: 12/2017 Past Psychological History: No Psychological Hx Reported Smoking Status: Never smoker Past Alcohol Use History: None Reported Past Drug Use History: None Reported - Past Family History Father Family Medical History: Cancer Additional Family Medical History / Comment(s): COLON Mother Family Medical History: Cancer Additional Family Medical History / Comment(s): COLON AND KIDNEY CA Medications and Allergies Home Medications Medication Instructions Recorded Confirmed Type Ascorbic Acid [Vitamin C] 500 mg PO DAILY 07/30/13 05/08/24 History Cholecalciferol [Vitamin D3 (25 25 mcg PO DAILY 07/30/13 05/08/24 History Mcg = 1000 Iu)] Aspirin EC [Ecotrin Low Dose] 81 mg PO HS 09/21/19 05/08/24 History Losartan Potassium [Cozaar] 25 mg PO BID 09/21/19 05/08/24 History [place]-3 Fatty Acids/Fish Oil [Fish 1 cap PO HS 09/21/19 05/08/24 History Oil 1,000 mg Softgel] Omeprazole 40 mg PO Q2D@2100 09/21/19 05/08/24 History calcium polycarbophiL [Fibercon] 1,250 mg PO PC-BRKFST 09/21/19 05/08/24 History Atorvastatin [Lipitor] 80 mg PO HS 05/08/24 05/08/24 History Gabapentin [Neurontin] 100 mg PO TID 05/08/24 05/08/24 History Levothyroxine Sodium [Synthroid] 100 mcg PO AC-BRKFST 05/08/24 05/08/24 History Multivitamins, Thera [Multivitamin 1 tab PO DAILY 05/08/24 05/08/24 History (formulary)] Turmeric(Unknown Dose) 1 tab PO DAILY 05/08/24 05/08/24 History Allergies Allergy/AdvReac Type Severity Reaction Status Date / Time No Known Allergies Allergy Verified 05/08/24 18:46 Physical Exam Vitals: Vital Signs Temp Pulse Pulse Resp BP BP Pulse Ox 05/09/24 07:03 97.7 F 71 17 135/91 98 05/09/24 03:41 98.4 F 172/98 05/09/24 02:00 96.6 F L 84 14 170/99 99 05/08/24 22:05 98.2 F 95 16 154/91 97 05/08/24 19:34 89 18 148/85 98 05/08/24 18:40 80 18 154/103 96 05/08/24 17:35 86 18 150/86 97 05/08/24 15:30 97.8 F 79 18 117/84 97 Intake and Output 05/08/24 05/09/24 05/09/24 22:59 06:59 14:59 Intake Total 1620 Output Total 1400 Balance 220 Intake: Oral 1620 Output: Urine 1400 Other: Weight 102.058 kg Head normocephalic Neck supple Lungs clear to auscultation bilaterally no wheezing or crackles Heart regular rate and rhythm S1-S2, no rub or gallop Abdomen is soft nontender nondistended positive bowel sounds no hepatosplenomegaly. Urostomy in place Extremities no edema Neuro alert and orientated to 3 Results CBC & Chem 7: 05/09/24 04:15 05/09/24 04:15 Labs: Abnormal Lab Results - Last 24 Hours (Table) 05/08/24 05/08/24 05/08/24 Range/Units 15:54 16:08 16:27 Hct 48.6 H (34.0-46.0) % Sodium 130 L (137-145) mmol/L Carbon Dioxide 20 L (22-30) mmol/L BUN 18 H (7-17) mg/dL Glucose 145 H (74-99) mg/dL POC Glucose (mg/dL) (70-110) mg/dL Alkaline Phosphatase 130 H (38-126) U/L Total Protein (6.3-8.2) g/dL Urine Appearance Cloudy H (Clear) Urine Protein Trace H (Negative) Ur Leukocyte Esterase Large H (Negative) Urine RBC 7 H (0-5) /hpf Urine WBC 79 H (0-5) /hpf Urine Bacteria Many H (None) /hpf Urine Mucus Rare H (None) /hpf 05/09/24 05/09/24 Range/Units 04:15 06:07 Hct (34.0-46.0) % Sodium 131 L (137-145) mmol/L Carbon Dioxide (22-30) mmol/L BUN (7-17) mg/dL Glucose (74-99) mg/dL POC Glucose (mg/dL) 116 H (70-110) mg/dL Alkaline Phosphatase (38-126) U/L Total Protein 6.0 L (6.3-8.2) g/dL Urine Appearance (Clear) Urine Protein (Negative) Ur Leukocyte Esterase (Negative) Urine RBC (0-5) /hpf Urine WBC (0-5) /hpf Urine Bacteria (None) /hpf Urine Mucus (None) /hpf Thrombosis Risk Factor Assmnt - Choose All That Apply Any of the Below Risk Factors Present?: No Other Risk Factors: Yes Each Risk Factor Represents 3 Points: Age 75 years or older Thrombosis Risk Factor Assessment Total Risk Factor Score: 3 Thrombosis Risk Factor Assessment Level: Moderate Risk Assessment and Plan Assessment: 1. Syncopal episode. 2. Urinary tract infection 3. History of bladder cancer with urostomy 4. History of essential hypertension 5. History of hyperlipidemia 6. History of thyroid disorder DVT prophylaxis Lovenox. GI prophylax Protonix Neurology, cardiology and neurology services consulted patient started on IV antibiotic for UTI Repeat labs ordered 2D echo and carotid Doppler ordered Time with Patient: Greater than 30 (Greater than 60% of the total time spent in counseling and coordination of care)
--- NOTE | 2024-05-09 13:44 | US ---
EXAMINATION TYPE: US carotid duplex BILAT DATE OF EXAM: 05/09/2024 COMPARISON: 09/22/19 carotid ultrasound CLINICAL INDICATION: Female, 88 years old with history of syncopal episode; syncope Additional History: R55 Syncope TECHNIQUE: Grayscale, color Doppler and spectral Doppler evaluation of the bilateral carotid systems and vertebral arteries. Indirect Doppler criteria was utilized. FINDINGS: EXAM MEASUREMENTS: RIGHT: Peak Systolic Velocity (PSV) cm/sec ----- Right CCA: 42.8 ----- Right ICA: 62.5 ----- Right ECA: 62.5 ICA/CCA ratio: 1.46 RIGHT: End Diastole cm/sec ----- Right CCA: 11.8 ----- Right ICA: 12.2 ----- Right ECA: 7.5 LEFT: Peak Systolic Velocity (PSV) cm/sec ----- Left CCA: 70.9 ----- Left ICA: 67.2 ----- Left ECA: 83.2 ICA/CCA ratio: 0.95 LEFT: End Diastole cm/sec ----- Left CCA: 15.1 ----- Left ICA: 20.1 ----- Left ECA: 13.6 VERTEBRALS (direction of flow): Right Vertebral: Antegrade Left Vertebral: Antegrade Rhythm: plaque in bilateral bulbs. 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 Spectral waveforms are within normal limits. IMPRESSION: Right: Less than 50% stenosis of the carotid bifurcation. Left: Less than 50% stenosis of the carotid bifurcation. Criteria for Assigning % of Stenosis / Diameter reduction (Estimation based on the indirect measurements of the internal carotid artery velocities (ICA PSV). 1. Normal (no stenosis)=ICA PSV < 125 cm/s: ratio < 2.0: ICA EDV<40 cm/s. 2. Less than 50% stenosis=ICA PSV < 125 cm/s: ratio < 2.0: ICA EDV<40 cm/s. 3. 50 to 69% stenosis=ICA PSV of 125 to 230 cm/s: ration 2.0 ? 4.0: ICA EDV 40-100 cm/s. 4. Greater than 70% stenosis to near occlusion= ICA PSV > 230 cm/s: ratio > 4.0: ICA EDV > 100 cm/s. 5. Near occlusion= ICA PSV velocities may be low or undetectable: variable ratio and ICA EDV. 6. Total occlusion=unable to detect flow. [facility], , 05/09/2024 1:42 PM
[2024-05-09 13:53] VITALS: RESP 16
--- NOTE | 2024-05-09 14:43 | P.CNNES ---
History of Present Illness Consult date: 05/09/24 Requesting physician: Deepa Overton Reason for Consult: syncopal episode History of Present Illness: This is an 88-year-old woman who presents the emergency department because of syncopal spell. She stated that yesterday she was over at [employer] and had stopped eating because she did not feel well and notified her family members who accompanied her and she felt hot prior to the episode then she passed out. She does not recall what transpired afterwards and she just remember being on a stretcher come to the hospital. She denies any urinary incontinence, bowel incontinence or tongue bite. According to the patient she was notified by family members possibly she was shaken and her eyes was drooping. She is not sure exactly. Unsure of exact duration of the episode. She denies any history of seizure. Denies any history of stroke. She had a similar episode about 5 years ago where she passed out but it was hot with the prior episode. Patient feels she is back to baseline. Some of the workup during this hospital visit consisted of: Sodium is 130, serum glucose is 145, calcium is 10.1. CT of the head is reported as no acute intracranial hemorrhage or midline shift. Personally reviewed the CT and agree with the report. EKG shows first degree AV block Review of Systems As per HPI Past Medical History Past Medical History: Cancer, GERD/Reflux, Hyperlipidemia, Hypertension, Thyroid Disorder Additional Past Medical History / Comment(s): HEART MURMUR, H. PYLORI, CA BREAST AND BLADDER, RECEIVING CHEMOTHERAPY FOR BLADDER CANCER History of Any Multi-Drug Resistant Organisms: None Reported Past Surgical History: Bladder Surgery, Breast Surgery, Cholecystectomy, Heart Catheterization With Stent, Joint Replacement, Orthopedic Surgery, Tonsillectomy Additional Past Surgical History / Comment(s): RT CARPAL TUNNEL, LEFT KNEE REPLACEMENT, ARTHROSCOPY RT KNEE, BACK SURGERY (3,4,5), BLADDER POLYPS, OVARY REMOVED, RT MASTECTOMY (MAY 2013) Cath- 3 stent, 2017 Past Anesthesia/Blood Transfusion Reactions: No Reported Reaction Additional Past Anesthesia/Blood Transfusion Reaction / Comment(s): "FACE HOT" Date of Last Stent Placement:: 12/2017 Past Psychological History: No Psychological Hx Reported Smoking Status: Never smoker Past Alcohol Use History: None Reported Past Drug Use History: None Reported - Past Family History Father Family Medical History: Cancer Additional Family Medical History / Comment(s): COLON Mother Family Medical History: Cancer Additional Family Medical History / Comment(s): COLON AND KIDNEY CA Medications and Allergies Home Medications Medication Instructions Recorded Confirmed Type Ascorbic Acid [Vitamin C] 500 mg PO DAILY 07/30/13 05/08/24 History Cholecalciferol [Vitamin D3 (25 25 mcg PO DAILY 07/30/13 05/08/24 History Mcg = 1000 Iu)] Aspirin EC [Ecotrin Low Dose] 81 mg PO HS 09/21/19 05/08/24 History Losartan Potassium [Cozaar] 25 mg PO BID 09/21/19 05/08/24 History [place]-3 Fatty Acids/Fish Oil [Fish 1 cap PO HS 09/21/19 05/08/24 History Oil 1,000 mg Softgel] Omeprazole 40 mg PO Q2D@2100 09/21/19 05/08/24 History calcium polycarbophiL [Fibercon] 1,250 mg PO PC-BRKFST 09/21/19 05/08/24 History Atorvastatin [Lipitor] 80 mg PO HS 05/08/24 05/08/24 History Gabapentin [Neurontin] 100 mg PO TID 05/08/24 05/08/24 History Levothyroxine Sodium [Synthroid] 100 mcg PO AC-BRKFST 05/08/24 05/08/24 History Multivitamins, Thera [Multivitamin 1 tab PO DAILY 05/08/24 05/08/24 History (formulary)] Turmeric(Unknown Dose) 1 tab PO DAILY 05/08/24 05/08/24 History Allergies Allergy/AdvReac Type Severity Reaction Status Date / Time No Known Allergies Allergy Verified 05/08/24 18:46 Physical Examination - Vital Signs Vital Signs: Vital Signs Temp Pulse Pulse Resp BP BP Pulse Ox 05/09/24 13:45 98.2 F 80 16 134/78 98 05/09/24 07:03 97.7 F 71 17 135/91 98 05/09/24 03:41 98.4 F 172/98 05/09/24 02:00 96.6 F L 84 14 170/99 99 05/08/24 22:05 98.2 F 95 16 154/91 97 05/08/24 19:34 89 18 148/85 98 05/08/24 18:40 80 18 154/103 96 05/08/24 17:35 86 18 150/86 97 05/08/24 15:30 97.8 F 79 18 117/84 97 Intake and Output 05/08/24 05/09/24 05/09/24 22:59 06:59 14:59 Intake Total 1620 Output Total 1400 Balance 220 Intake: Oral 1620 Output: Urine 1400 Other: Weight 102.058 kg GENERAL: The patient is lying in bed and is not in acute distress. NEUROLOGICAL: Higher mental function: The patient is awake, alert, oriented to self, place and time. Patient is following commands. No aphasia and no neglect. Cranial nerves: The pupils are round, equal and reactive to light and accommodation. Visual yu are full to confrontation throughout. Extraocular movement is intact no nystagmus is noted. Facial sensation is normal to touch throughout. The facial strength is normal throughout. Hearing is mildly dec reased bilaterally to hand rub. Tongue is midline and moved [id number] without any difficulty. No dysarthria is noted. Shoulder shrug is normal bilaterally. Motor: The strength is 5 over 5 throughout. Normal tone and bulk. Cerebellum: Normal finger to nose bilaterally. Sensation: Sensation is normal to touch throughout. Plantars are downgoing bilaterally. Results - Laboratory Findings CBC and BMP: 05/09/24 04:15 05/09/24 04:15 Abnormal Lab Findings: Abnormal Labs 05/08/24 05/08/24 05/08/24 15:54 16:08 16:27 Hct 48.6 H Sodium 130 L Carbon Dioxide 20 L BUN 18 H Glucose 145 H POC Glucose (mg/dL) Alkaline Phosphatase 130 H Total Protein Urine Appearance Cloudy H Urine Protein Trace H Ur Leukocyte Esterase Large H Urine RBC 7 H Urine WBC 79 H Urine Bacteria Many H Urine Mucus Rare H 05/09/24 05/09/24 04:15 06:07 Hct Sodium 131 L Carbon Dioxide BUN Glucose POC Glucose (mg/dL) 116 H Alkaline Phosphatase Total Protein 6.0 L Urine Appearance Urine Protein Ur Leukocyte Esterase Urine RBC Urine WBC Urine Bacteria Urine Mucus Assessment and Plan Assessment: This is an 88-year-old woman who presents to the emergency department because of syncopal spell. She was at a restaurant and did not feel well and felt hot prior to the episode. She denies any urinary, bowel incontinence or tongue bit e. According to her she was notified by his family members possibly she was shaken. She had a similar episode about 5 years ago but it was hot during that event. Syncopal spell unknown exact etiology First-degree AV block History of breast cancer History of bladder cancer post chemotherapy History of coronary artery disease status post stent Plan: I ordered a routine EEG. I ordered MRI of the brain. I will not start patient on any antiseizure medication since this is not clear seizure but if patient has any abnormality that can increase risk for seizure on the EEG or MRI then we will start the patient on the medication Seizure precautions seizure pads Per [facility] because of seizure or syncope, to avoid driving from the last event. Avoid heights. Avoid swimming unassisted or using heavy machinery. Cardiology is consulted Recommend 30-day event monitoring Defer the rest of the medical management per the primary and other specialist. Thank you for the consultation. Time with Patient: Greater than 30
--- NOTE | 2024-05-09 17:51 | P.GSCN ---
History of Present Illness Consult date: 05/09/24 Reason for Consult: UTI History of present illness: This is an 88-year-old female with a history of bladder cancer status post radical cystectomy with an ileal conduit by Dr. Liang valverde in 2018. Bladder cancer is in remission. She is admitted to the hospital with syncope, possible UTI. Denies any history of recurrent UTIs, her last UTI was approximately 5 years ago. No previous history of kidney stones. She denies any hematuria, or flank pain. Denies any fevers or chills. No issues with her urostomy. Urine analysis is positive for leukocytes. She is currently on ceftriaxone Review of Systems - Constitutional Denies fever, Denies weight loss - Cardiovascular Denies chest pain, Denies shortness of breath - Respiratory Denies cough, Denies 7 - Genitourinary Genitourinary: Denies dysuria, Denies hematuria - Integumentary Denies rash, Denies unusual bruising Past Medical History Past Medical History: Cancer, GERD/Reflux, Hyperlipidemia, Hypertension, Thyroid Disorder Additional Past Medical History / Comment(s): HEART MURMUR, H. PYLORI, CA BREAST AND BLADDER, RECEIVING CHEMOTHERAPY FOR BLADDER CANCER History of Any Multi-Drug Resistant Organisms: None Reported Past Surgical History: Bladder Surgery, Breast Surgery, Cholecystectomy, Heart Catheterization With Stent, Joint Replacement, Orthopedic Surgery, Tonsillectomy Additional Past Surgical History / Comment(s): RT CARPAL TUNNEL, LEFT KNEE REPLACEMENT, ARTHROSCOPY RT KNEE, BACK SURGERY (3,4,5), BLADDER POLYPS, OVARY REMOVED, RT MASTECTOMY (MAY 2013) Cath- 3 stent, 2017 Past Anesthesia/Blood Transfusion Reactions: No Reported Reaction Additional Past Anesthesia/Blood Transfusion Reaction / Comm: "FACE HOT" Date of Last Stent Placement:: 12/2017 Past Psychological History: No Psychological Hx Reported Smoking Status: Never smoker Past Alcohol Use History: None Reported Past Drug Use History: None Reported - Past Family History Father Family Medical History: Cancer Additional Family Medical History / Comment(s): COLON Mother Family Medical History: Cancer Additional Family Medical History / Comment(s): COLON AND KIDNEY CA Medications and Allergies Home Medications Medication Instructions Recorded Confirmed Type Ascorbic Acid [Vitamin C] 500 mg PO DAILY 07/30/13 05/08/24 History Cholecalciferol [Vitamin D3 (25 25 mcg PO DAILY 07/30/13 05/08/24 History Mcg = 1000 Iu)] Aspirin EC [Ecotrin Low Dose] 81 mg PO HS 09/21/19 05/08/24 History Losartan Potassium [Cozaar] 25 mg PO BID 09/21/19 05/08/24 History [place]-3 Fatty Acids/Fish Oil [Fish 1 cap PO HS 09/21/19 05/08/24 History Oil 1,000 mg Softgel] Omeprazole 40 mg PO Q2D@2100 09/21/19 05/08/24 History calcium polycarbophiL [Fibercon] 1,250 mg PO PC-BRKFST 09/21/19 05/08/24 History Atorvastatin [Lipitor] 80 mg PO HS 05/08/24 05/08/24 History Gabapentin [Neurontin] 100 mg PO TID 05/08/24 05/08/24 History Levothyroxine Sodium [Synthroid] 100 mcg PO AC-BRKFST 05/08/24 05/08/24 History Multivitamins, Thera [Multivitamin 1 tab PO DAILY 05/08/24 05/08/24 History (formulary)] Turmeric(Unknown Dose) 1 tab PO DAILY 05/08/24 05/08/24 History Allergies Allergy/AdvReac Type Severity Reaction Status Date / Time No Known Allergies Allergy Verified 05/08/24 18:46 Surgical - Exam Vital Signs Temp Pulse Resp BP Pulse Ox 97.8 F 79 18 117/84 97 05/08/24 15:30 05/08/24 15:30 05/08/24 15:30 05/08/24 15:30 05/08/24 15:30 - General no distress, no pain - ENT normal nares, normal mucosa - Respiratory normal expansion, normal respiratory effort - Abdomen Urostomy pink viable, Abdomen: soft, non tender - Psychiatric oriented to time, oriented to person, oriented to place Results - Labs 05/09/24 04:15 05/09/24 04:15 Abnormal Lab Results - Last 24 Hours (Table) 05/09/24 05/09/24 Range/Units 04:15 06:07 Sodium 131 L (137-145) mmol/L POC Glucose (mg/dL) 116 H (70-110) mg/dL Total Protein 6.0 L (6.3-8.2) g/dL Diabetes panel 05/09/24 Range/Units 04:15 Sodium 131 L (137-145) mmol/L Potassium 4.1 (3.5-5.1) mmol/L Chloride 101 (98-107) mmol/L Carbon Dioxide 22 (22-30) mmol/L BUN 16 (7-17) mg/dL Creatinine 0.78 (0.52-1.04) mg/dL Glucose 91 (74-99) mg/dL Calcium 10.0 (8.4-10.2) mg/dL AST 23 (14-36) U/L ALT 15 (4-34) U/L Alkaline Phosphatase 121 (38-126) U/L Total Protein 6.0 L (6.3-8.2) g/dL Albumin 3.6 (3.5-5.0) g/dL Calcium panel 05/09/24 Range/Units 04:15 Calcium 10.0 (8.4-10.2) mg/dL Albumin 3.6 (3.5-5.0) g/dL Pituitary panel 05/09/24 Range/Units 04:15 Sodium 131 L (137-145) mmol/L Potassium 4.1 (3.5-5.1) mmol/L Chloride 101 (98-107) mmol/L Carbon Dioxide 22 (22-30) mmol/L BUN 16 (7-17) mg/dL Creatinine 0.78 (0.52-1.04) mg/dL Glucose 91 (74-99) mg/dL Calcium 10.0 (8.4-10.2) mg/dL Adrenal panel 05/09/24 Range/Units 04:15 Sodium 131 L (137-145) mmol/L Potassium 4.1 (3.5-5.1) mmol/L Chloride 101 (98-107) mmol/L Carbon Dioxide 22 (22-30) mmol/L BUN 16 (7-17) mg/dL Creatinine 0.78 (0.52-1.04) mg/dL Glucose 91 (74-99) mg/dL Calcium 10.0 (8.4-10.2) mg/dL Total Bilirubin 0.8 (0.2-1.3) mg/dL AST 23 (14-36) U/L ALT 15 (4-34) U/L Alkaline Phosphatase 121 (38-126) U/L Total Protein 6.0 L (6.3-8.2) g/dL Albumin 3.6 (3.5-5.0) g/dL Assessment and Plan Assessment: 88-year-old female with a possible UTI, history of bladder cancer status post radical cystectomy with urostomy. Based on urinalysis is difficult to tell if this truly is a UTI given her urostomy, urinalysis will always be positive. At this time I recommend continuing ceftriaxone until urine culture is finalized, if it is consistent with a UTI at that point she will need a 7-day course of antibiotics based on culture susceptibility
--- NOTE | 2024-05-09 21:09 | EEG ---
ELECTROENCEPHALOGRAM REPORT CLINICAL HISTORY: This is an 88-year-old woman with a syncopal spell. The video EEG is obtained to evaluate for seizure epileptiform activity. RELEVANT MEDICATION: Gabapentin. EEG TYPE: This is a routine 21 channel EEG with video using the 10/20 electrode placement system. DESCRIPTION: Wakefulness is only obtained. During the awake state, posterior-dominant rhythm consists of [id number] voltage of 8 to 9 Hz activity that is well modulated and well sustained. There is no physiological stage 2 sleep architecture. There is no focal slowing. Interictal and ictal is none. ACTIVATION PROCEDURE: Photic stimulation did not evoke a posterior driving response. There is no abnormality during the photic stimulation. Hyperventilation is not performed. CLINICAL INTERPRETATION: This is a normal routine EEG during the awake state. There is no focal slowing, epileptiform discharge, or seizure on the EEG. A normal routine EEG does not rule out underlying epilepsy. Clinical correlation is recommended. RAN / SKY: [id number] /
[2024-05-10 08:17] LABS: Basophils # (A) 0.07 X 10*3/uL (0.00-0.10); Basophils % (A) 1.1 %; Eosinophils # (A) 0.21 X 10*3/uL (0.04-0.35); Eosinophils % (A) 3.3 %; HCT 42.7 % (37.2-46.3); Lymphocytes # (A) 1.35 X 10*3/uL (0.90-5.00); Lymphocytes % (A) 21.2 %; MCH 31.6 pg (27.0-32.0); MCHC 32.8 g/dL (32.0-37.0); MCV 96.4 FL (80.0-97.0); Mean Platelet Volume 10.6 FL (9.5-12.2); Monocytes # (A) 0.92 X 10*3/uL (0.20-1.00); Monocytes % (A) 14.4 %; NRBC Per 100 WBC 0 X 10*3/uL (0.00-0.01); Neutrophils # (A) 3.81 X 10*3/uL (1.80-7.70); Neutrophils % (A) 59.7 %; Platelet Count 235 X 10*3/uL (140-440); RBC 4.43 X 10*6/uL (4.10-5.20); RDW 13.3 % (11.5-14.5); WBC 6.38 X 10*3/uL (4.50-10.00)
[2024-05-10 08:38] LABS: ALT 18 U/L (8-44); AST 27 U/L (13-35); Albumin 3.7 g/dL (3.8-4.9); Albumin/Globulin Ratio 1.61 Ratio (1.60-3.17); Alkaline Phosphatase 105 U/L (41-126); BUN/Creat Ratio 19.88 Ratio (12.00-20.00); Blood Urea Nitrogen 15.9 mg/dL (9.0-27.0); Calcium 9.7 mg/dL (8.7-10.3); Carbon Dioxide 20.3 mmol/L (21.6-31.8); Chloride 102 mmol/L (96-109); Globulin 2.3 g/dL (1.6-3.3); Glucose 91 mg/dL (70-110); Potassium 4.5 mmol/L (3.5-5.5); Sodium 133 mmol/L (135-145); Total Bilirubin 0.5 mg/dL (0.3-1.2)
[2024-05-10] MEDS: ENOXAPARIN 40 MG/0.4 ML SYRINGE SQ SCH (09:04)
--- NOTE | 2024-05-10 09:46 | P.PN ---
Subjective Progress Note Date: 05/10/24 Oxana Barros is an 88-year-old female patient of Dr. Miguel who presented to the ER after a syncopal episode. Patient was out with her family at a restaurant when she became lightheaded and lost consciousness. Patient has a past medical history of bladder cancer in which she has a urostomy and follows with urology services, GERD, hyperlipidemia, hypertension, thyroid disorder. Chest x-ray completed in ER showing no acute cardiopulmonary process. Head CT completed showing no acute intracranial hemorrhage or midline shift there is mild to moderate diffuse age-related cerebral atrophy and chronic small vessel ischemic changes. EKG completed showing sinus rhythm with first-degree AV block. Lab work showing white blood cell 7.7, hemoglobin 16.0, creatinine 0.98 bun 18. UA positive for urinary tract infection. Influenza RSV and COVID-19 negative. At this time patient will be started on IV antibiotics for urinary tract infection will consult neurology and cardiology services for further investigation into syncopal episode. Current vital signs temp 97.7, heart rate 71, respiratory rate 17, blood pressure 135/91 with a pulse ox of 98% on room air. Patient denies chest pain or shortness of breath. Patient denies nausea vomiting or diarrhea. Patient denies any urinary burning or frequency On 05/10/2024 patient is alert and oriented x 3. Patient remains on IV Rocephin for urinary tract infection awaiting urine culture. Patient was evaluated by neurology services EEG completed and negative. Carotid Doppler negative. MRI has been ordered. 2D echo also ordered awaiting cardiology input. Patient eager to be DC'd home. Patient denies chest pain or shortness of breath. Patient denies nausea vomiting or diarrhea. Patient denies any urinary burning or frequency Objective - Vital Signs Vital signs: Vital Signs Temp 98.1 F 05/10/24 07:06 Pulse 78 05/10/24 07:06 Resp 16 05/10/24 07:06 BP 150/80 05/10/24 07:06 Pulse Ox 97 05/10/24 07:06 FiO2 Intake & Output 05/09/24 05/10/24 05/10/24 18:59 06:59 18:59 Intake Total 1440 Output Total 1200 1200 Balance 240 -1200 Intake: Oral 1440 Output: Urine 1200 1200 - Labs CBC & Chem 7: 05/10/24 03:47 05/10/24 03:47 Labs: Abnormal Lab Results - Last 24 Hours (Table) 05/10/24 Range/Units 03:47 Sodium 133 L (135-145) mmol/L Carbon Dioxide 20.3 L (21.6-31.8) mmol/L Total Protein 6.0 L (6.2-8.2) g/dL Albumin 3.7 L (3.8-4.9) g/dL Microbiology - Last 24 Hours (Table) 05/08/24 16:27 Urine Culture - Preliminary Urine,Voided Gram Neg Bacilli Assessment and Plan Assessment: 1. Syncopal episode. 2. Urinary tract infection 3. History of bladder cancer with urostomy 4. History of essential hypertension 5. History of hyperlipidemia 6. History of thyroid disorder DVT prophylaxis Lovenox. GI prophylax Protonix Neurology, cardiology and neurology services consulted patient started on IV antibiotic for UTI Repeat labs ordered EEG completed negative Carotid Doppler completed negative 2D echo ordered MRI of the brain ordered Urine culture pending
--- NOTE | 2024-05-10 10:56 | P.CRDCN ---
History of Present Illness History of present illness: HISTORY OF PRESENT ILLNESS: This is a 88-year-old female with a past medical history significant for hypertension, hyperlipidemia, and hypothyroidism. Patient follows with a deaf teacher out of town. We have been asked to see the patient in consultation for syncope. Patient examined at the bedside. Patient states that she was out to eat at [employer] with her family when she began to feel dizzy and passed out while sitting down. Patient was brought to the hospital for further ev aluation. The patient was found to have a urinary tract infection and is being treated with antibiotics. She currently denies any chest pain or pressure. She denies any shortness of breath. Denies any previous episodes of syncope. The patient was found to have episodes of second-degree type I heart block overnight. DIAGNOSTICS: - EKG reveals sinus mechanism with left bundle branch block - Chest xray negative for acute process - Laboratory data: WBC 6.38. Hemoglobin 14.0. Platelet count 236 5. Sodium 133. Potassium 4.5. BUN 15. Creatinine 0.80. TSH 0.64. - Current home cardiac medications include aspirin 81 mg daily, Lipitor 80 mg daily, and losartan 25 mg twice a day. - Most recent echocardiogram obtained in 2019 revealed ejection fraction 55 to 60%, moderate aortic stenosis, mild MR, mild TR -Patient underwent dobutamine stress echo in September 2019 which was negative for ischemia REVIEW OF SYSTEMS: At the time of my exam: CONSTITUTIONAL: Denies fever or chills. HEENT: Denies blurred vision, vision changes, or eye pain. Denies hemoptysis CARDIOVASCULAR: Denies chest pain. Denies orthopnea. Denies PND. Denies palpitations RESPIRATORY: Denies shortness of breath. GASTROINTESTINAL: Denies abdominal pain. Denies nausea or vomiting. HEMATOLOGIC: Denies bleeding disorders. GENITOURINARY: Denies any blood in urine. SKIN: Denies pruitis. Denies rash. PHYSICAL EXAM: VITAL SIGNS: Reviewed. GENERAL: Well-developed in no acute distress. HEENT: Head is normocephalic. Pupils are equal, round. Sclerae anicteric. Mucous membranes of the mouth are moist. Neck supple. No JVD or thyromegaly LUNGS: Respirations even and unlabored. Lungs essentially clear to auscultation bilaterally. HEART: Regular rate and rhythm. S1 and S2 heard. Systolic murmur noted. ABDOMEN: Soft. Nondistended. Nontender. EXTREMITIES: Normal range of motion. No clubbing or cyanosis. Peripheral pulses intact. No lower extremity edema NEUROLOGIC: Awake and alert. Oriented x 3. ASSESSMENT: Syncope Intermittent second-degree type I heart block Urinary tract infection Hypertension Hyperlipidemia Hypothyroidism PLAN: Obtain 2D echo to assess cardiac structure and function TSH checked and within normal limits Avoid AV dustin blocking agents Continue current cardiac medications including aspirin, Lipitor, and losartan 30-day event monitor ordered Continue telemetry monitoring Further recommendations pending patient course Patient to follow-up postdischarge with her primary deaf teacher in [place] Nurse practitioner note has been reviewed by physician. Signing provider agrees with the documented findings, assessment, and plan of care documented by FRAME CHANGER as a scribe. Past Medical History Past Medical History: Cancer, GERD/Reflux, Hyperlipidemia, Hypertension, Thyroid Disorder Additional Past Medical History / Comment(s): HEART MURMUR, H. PYLORI, [place] BREAST AND BLADDER, RECEIVING CHEMOTHERAPY FOR BLADDER CANCER History of Any Multi-Drug Resistant Organisms: None Reported Past Surgical History: Bladder Surgery, Breast Surgery, Cholecystectomy, Heart Catheterization With Stent, Joint Replacement, Orthopedic Surgery, Tonsillectomy Additional Past Surgical History / Comment(s): RT CARPAL TUNNEL, LEFT KNEE REPLACEMENT, ARTHROSCOPY RT KNEE, BACK SURGERY (3,4,5), BLADDER POLYPS, OVARY REMOVED, RT MASTECTOMY (MAY 2013) Cath- 3 stent, 2017 Past Anesthesia/Blood Transfusion Reactions: No Reported Reaction Additional Past Anesthesia/Blood Transfusion Reaction / Comment(s): "FACE HOT" Date of Last Stent Placement:: 12/2017 Past Psychological History: No Psychological Hx Reported Smoking Status: Never smoker Past Alcohol Use History: None Reported Past Drug Use History: None Reported - Past Family History Father Family Medical History: Cancer Additional Family Medical History / Comment(s): COLON Mother Family Medical History: Cancer Additional Family Medical History / Comment(s): COLON AND KIDNEY CA Medications and Allergies Home Medications Medication Instructions Recorded Confirmed Type Ascorbic Acid [Vitamin C] 500 mg PO DAILY 07/30/13 05/08/24 History Cholecalciferol [Vitamin D3 (25 25 mcg PO DAILY 07/30/13 05/08/24 History Mcg = 1000 Iu)] Aspirin EC [Ecotrin Low Dose] 81 mg PO HS 09/21/19 05/08/24 History Losartan Potassium [Cozaar] 25 mg PO BID 09/21/19 05/08/24 History [place]-3 Fatty Acids/Fish Oil [Fish 1 cap PO HS 09/21/19 05/08/24 History Oil 1,000 mg Softgel] Omeprazole 40 mg PO Q2D@2100 09/21/19 05/08/24 History calcium polycarbophiL [Fibercon] 1,250 mg PO PC-BRKFST 09/21/19 05/08/24 History Atorvastatin [Lipitor] 80 mg PO HS 05/08/24 05/08/24 History Gabapentin [Neurontin] 100 mg PO TID 05/08/24 05/08/24 History Levothyroxine Sodium [Synthroid] 100 mcg PO AC-BRKFST 05/08/24 05/08/24 History Multivitamins, Thera [Multivitamin 1 tab PO DAILY 05/08/24 05/08/24 History (formulary)] Turmeric(Unknown Dose) 1 tab PO DAILY 05/08/24 05/08/24 History Allergies Allergy/AdvReac Type Severity Reaction Status Date / Time No Known Allergies Allergy Verified 05/08/24 18:46 Physical Exam Vitals: Vital Signs Temp Pulse Resp BP BP Pulse Ox 05/10/24 07:06 98.1 F 78 16 150/80 97 05/10/24 00:48 97.4 F L 70 16 148/83 98 05/09/24 19:32 97.4 F L 80 16 156/79 96 05/09/24 13:45 98.2 F 80 16 134/78 98 Intake and Output 05/09/24 05/10/24 05/10/24 22:59 06:59 14:59 Intake Total 1440 Output Total 1200 1200 Balance 240 -1200 Intake: Oral 1440 Output: Urine 1200 1200 Results 05/10/24 03:47 05/10/24 03:47 Cardiac Enzymes 05/10/24 Range/Units 03:47 AST 27 (13-35) U/L CBC 05/10/24 Range/Units 03:47 WBC 6.38 (4.50-10.00) X 10*3/uL RBC 4.43 (4.10-5.20) X 10*6/uL Hgb 14.0 (12.0-15.0) g/dL Hct 42.7 (37.2-46.3) % Plt Count 235 (140-440) X 10*3/uL Comprehensive Metabolic Panel 05/10/24 Range/Units 03:47 Sodium 133 L (135-145) mmol/L Potassium 4.5 (3.5-5.5) mmol/L Chloride 102 (96-109) mmol/L Carbon Dioxide 20.3 L (21.6-31.8) mmol/L BUN 15.9 (9.0-27.0) mg/dL Creatinine 0.8 (0.6-1.5) mg/dL Glucose 91 (70-110) mg/dL Calcium 9.7 (8.7-10.3) mg/dL AST 27 (13-35) U/L ALT 18 (8-44) U/L Alkaline Phosphatase 105 (41-126) U/L Total Protein 6.0 L (6.2-8.2) g/dL Albumin 3.7 L (3.8-4.9) g/dL Current Medications Generic Name Dose Route Start Last Admin Trade Name Freq PRN Reason Stop Dose Admin Acetaminophen 650 mg 05/08/24 18:06 Acetaminophen Tab 325 Mg Tab PO Q6HR PRN Mild Pain or Fever > 100.5 Aspirin 81 mg 05/08/24 23:45 05/09/24 21:09 Aspirin 81 Mg PO 81 mg HS ADARSH Administration Atorvastatin Calcium 80 mg 05/08/24 23:45 05/09/24 21:08 Atorvastatin 80 Mg Tab PO 80 mg HS ADARSH Administration Enoxaparin Sodium 40 mg 05/10/24 09:00 05/10/24 09:04 Enoxaparin 40 Mg/0.4 Ml Syringe SQ 40 mg DAILY ADARSH Administration Gabapentin 100 mg 05/09/24 09:00 05/10/24 09:04 Gabapentin 100 Mg Cap PO 100 mg TID ADARSH Administration Ceftriaxone Sodium 2 gm/ 50 mls @ 100 mls/hr 05/08/24 17:15 05/10/24 09:04 Sodium Chloride IVPB 100 mls/hr Q24HR ADARSH Administration Protocol Levothyroxine Sodium 100 mcg 05/09/24 07:30 05/10/24 09:04 Levothyroxine 100 Mcg Tab PO 100 mcg AC-BRKFST ADARSH Administration Losartan Potassium 25 mg 05/08/24 23:45 05/10/24 09:04 Losartan 25 Mg Tab PO 25 mg BID ADARSH Administration Naloxone HCl 0.2 mg 05/08/24 18:06 Naloxone 0.4 Mg/Ml 1 Ml Vial IV Q2M PRN Opioid Reversal Pantoprazole Sodium 40 mg 05/10/24 21:00 Pantoprazole 40 Mg Tablet PO Q2D@2100 ADARSH Intake and Output 05/09/24 05/10/24 05/10/24 22:59 06:59 14:59 Intake Total 1440 Output Total 1200 1200 Balance 240 -1200 Intake: Oral 1440 Output: Urine 1200 1200 05/10/24 03:47 05/10/24 03:47
--- NOTE | 2024-05-10 11:08 | MR ---
INDICATION: Patient age:Female; 88 years old; Reason for study: syncope. concern for seizure; PHH. COMPARISON: CT brain 05/08/2024, 09/22/2019. TECHNIQUE: Multi planar, multi sequence imaging was performed through the brain. The patient was then given 10 cc of Gadobutrol intravenously and multi planar, T1 fat-saturation images were obtained. FINDINGS: The delgadillo-white junctions, ventricular system, basal cisterns appear unremarkable. Age-appropriate cer ebral volume loss. Diffusion-weighted imaging shows no evidence of restricted diffusion to suggest ac dianne/subacute infarct. Intracranial arterial flow voids are maintained. Midline structures show no abn ormality. Patchy an confluent areas of high T2/FLAIR signal intensity are seen within the supratentor ial subcortical and periventricular white matter. The susceptibility weighted images do not reveal an y evidence for micro-hemorrhage. After administration of gadolinium, no abnormal enhancement is seen. The bone marrow signal is within normal limits. Postsurgical changes from posterior cervical decompre ssion with susceptibility artifact. The paranasal sinuses are unremarkable. Bilateral aphakia. Left m astoid effusion. IMPRESSION: 1. No evidence of intracranial mass, acute/subacute infarct, or abnormal enhancement. 2. Age-related cerebral atrophy with moderate nonspecific white matter changes, likely related to sma ll vessel ischemic disease. [facility], , 05/10/2024 11:05 AM
--- NOTE | 2024-05-10 14:29 | P.PN ---
Subjective Progress Note Date: 05/10/24 I am following-up with patient and no further syncopal spells. Objective - Vital Signs Vital signs: Vital Signs Temp 97.7 F 05/10/24 12:11 Pulse 75 05/10/24 12:11 Resp 16 05/10/24 12:11 BP 154/88 05/10/24 12:11 Pulse Ox 98 05/10/24 12:11 FiO2 Intake & Output 05/09/24 05/10/24 05/10/24 18:59 06:59 18:59 Intake Total 1440 Output Total 1200 1200 900 Balance 240 -1200 -900 Intake: Oral 1440 Output: Urine 1200 1200 900 - Exam GENERAL: The patient is sitting in a recliner chair and is not in acute distress. NEUROLOGICAL: Higher mental function: The patient is awake, alert, oriented to self, place and time. Patient is following commands. No aphasia and no neglect. Cranial nerves: The pupils are round, equal and reactive to light and accommodation. Visual yu are full to confrontation throughout. Extraocular movement is intact no nystagmus is noted. Facial sensation is normal to touch throughout. The facial strength is normal throughout. Hearing is mildly decreased bilaterally to hand rub. Tongue is midline and moved [id number] without any difficulty. No dysarthria is noted. Shoulder shrug is normal bilaterally. Motor: The strength is 5 over 5 throughout. Normal tone and bulk. Cerebellum: Normal finger to nose bilaterally. Sensation: Sensation is normal to touch throughout. Plantars are downgoing bilaterally. Some of the workup during this hospital visit consisted of: Sodium is 130, serum glucose is 145, calcium is 10.1. CT of the head is reported as no acute intracranial hemorrhage or midline shift. Personally reviewed the CT and agree with the report. EKG shows first degree AV block Routine EEG: Normal. MRI Brain: No evidence of intracranial mass, acute/subacute infarct or abnormal enhancement. - Labs CBC & Chem 7: 05/10/24 03:47 05/10/24 03:47 Labs: Abnormal Lab Results - Last 24 Hours (Table) 05/10/24 Range/Units 03:47 Sodium 133 L (135-145) mmol/L Carbon Dioxide 20.3 L (21.6-31.8) mmol/L Total Protein 6.0 L (6.2-8.2) g/dL Albumin 3.7 L (3.8-4.9) g/dL Microbiology - Last 24 Hours (Table) 05/08/24 16:27 Urine Culture - Preliminary Urine,Voided Gram Neg Bacilli Assessment and Plan Assessment: This is an 88-year-old woman who presents to the emergency department because of syncopal spell. She was at a restaurant and did not feel well and felt hot prior to the episode. She denies any urinary, bowel incontinence or tongue bite. According to her she was notified by his family members possibly she was shaken. She had a similar episode about 5 years ago but it was hot during that event. Syncopal spell unknown exact etiology. Unsure if cardiac in etiology b/c of AV block. Routine EEG and MRI Brain are unremarkable First-degree AV block History of breast cancer History of bladder cancer post chemotherapy History of coronary artery disease status post stent Plan: Seizure precautions seizure pads Per [facility] because of seizure or syncope, to avoid driving from the last event. Avoid heights. Avoid swimming unassisted or using heavy machinery. Cardiology is consulted Recommend 30-day event monitoring Defer the rest of the medical management per the primary and other specialist. There is no further neurological work-up. Will sign off. Please reconsult if needed. Time with Patient: Less than 30
--- NOTE | 2024-05-10 19:29 | CA ---
Transthoracic Echo Report Name: Oxana Barros Age: 88 Gender: F : 1935 Exam Date: 05/10/2024 16:52 Exam Location: [facility] Ht (in): 69 Wt (lb): 225 Ordering Physician: Oly Rodriguez Attending/Referring Phys: [id number], Jennifer Decal Maker Liz Garcia RDCS Procedure CPT: Indications: Syncope Cardiac Hx: Technical Quality: Technically difficult study Contrast 1: Definity Total Dose (mL): 2 Contrast 2: Total Dose (mL): MEASUREMENTS (Male / Female) Normal Values 2D ECHO LV Diastolic Diameter PLAX 5.5 cm 4.2 - 5.9 / 3.9 - 5.3 cm LV Systolic Diameter PLAX 3.9 cm IVS Diastolic Thickness 1.2 cm 0.6 - 1.0 / 0.6 - 0.9 cm LVPW Diastolic Thickness 1.1 cm 0.6 - 1.0 / 0.6 - 0.9 cm LV Relative Wall Thickness 0.4 RV Internal Dim ED PLAX 2.5 cm LVOT Diameter 2.3 cm LA Systolic Diameter LX 3.8 cm 3.0 - 4.0 / 2.7 - 3.8 cm LV Diastolic Volume MOD BP 73.9 cm??? 67 - 155 / 56 - 104 cm??? LV Systolic Volume MOD BP 35.5 cm??? 22 - 58 / 19 - 49 cm??? LV Ejection Fraction MOD BP 52.0 % >= 55 % LV Cardiac Index MOD BP 1342.0 cm???/min???m??? LV Diastolic Volume MOD 4C 87.0 cm??? LV Systolic Volume MOD 4C 39.0 cm??? LV Ejection Fraction MOD 4C 55.2 % LV Cardiac Index MOD 4C 1675.5 cm???/min???m??? LV Diastolic Length 4C 7.0 cm LV Systolic Length 4C 6.6 cm LV Diastolic Volume MOD 2C 60.7 cm??? LV Systolic Volume MOD 2C 30.6 cm??? LV Ejection Fraction MOD 2C 49.6 % LV Cardiac Index MOD 2C 1051.2 cm???/min???m??? LV Diastolic Length 2C 6.6 cm LV Systolic Length 2C 6.2 cm LA Volume 79.4 cm??? 18 - 58 / 22 - 52 cm??? LA Volume Index 35.1 cm???/m??? 16 - 28 cm???/m??? M-MODE Aortic Root Diameter MM 3.3 cm DOPPLER AV Peak Velocity 351.4 cm/s AV Peak Gradient 49.4 mmHg AV Mean Velocity 240.9 cm/s AV Mean Gradient 27.3 mmHg AV Velocity Time Integral 76.7 cm AI Peak Velocity 404.9 cm/s AI Peak Gradient 65.6 mmHg AI Pressure Half Time 675.0 ms LVOT Peak Velocity 68.9 cm/s LVOT Peak Gradient 1.9 mmHg LVOT Velocity Time Integral 14.0 cm LVOT Stroke Volume 59.1 cm??? LVOT Stroke Volume Index 27.2 ml/m??? LVOT Cardiac Index 2063.3 cm???/min???m??? AV Area Cont Eq vti 0.8 cm??? AV Area Cont Eq pk 0.8 cm??? MV Peak Velocity 204.8 cm/s MV Peak Gradient 16.8 mmHg MV Mean Velocity 94.1 cm/s MV Mean Gradient 5.0 mmHg MV Velocity Time Integral 27.6 cm MV Area PHT 6.3 cm??? MV Deceleration Time 120.0 ms TR Peak Velocity 320.8 cm/s TR Peak Gradient 41.2 mmHg FINDINGS Left Ventricle Left ventricular ejection fraction is estimated at 45-50 %. Mildly increased septal wall thickness. Mildly increased posterior wall thickness. Mildly increased left ventricular diastolic diameter. Mildly decreased left ventricular ejection fraction. Right Ventricle Normal right ventricular size and function. Mild pulmonary hypertension. Right Atrium Right atrium not well visualized. Left Atrium Moderately increased left atrial volume. Mildly increased left atrial area. No left atrial thrombus or mass present. Mitral Valve Severe thickening/calcification of the anterior mitral valve leaflet. Severe thickening/calcification of the posterior mitral valve leaflet. Moderate mitral stenosis. Aortic Valve Diffuse thickening of the aortic valve cusps with reduced excursion. Moderate- to-severe aortic stenosis with a peak gradient of 50 mmHg and a mean gradient of 27 mmHg. Tricuspid Valve Tricuspid valve not well visualized. Mild tricuspid regurgitation. Pulmonic Valve Pulmonic valve not well visualized. No pulmonic regurgitation. Pericardium No pericardial effusion. Aorta Normal size aortic root and proximal ascending aorta. CONCLUSIONS Mildly impaired LV function with EF between 45 to 50% Severe aortic sclerosis and moderate aortic stenosis Severe mitral annular calcification with moderate mitral stenosis as well Previewed by: Dr. Estevan Dow MD (Electronically Signed) Final Date: 10 May 2024 19:28
[2024-05-10] MEDS: PANTOPRAZOLE 40 MG TABLET PO SCH (21:14)
[2024-05-10] MEDS: polyethylene glycoL 3350 17 GM POWD.PACK PO SCH (21:15)
--- NOTE | 2024-05-11 10:27 | P.PN ---
Subjective Progress Note Date: 05/11/24 88 yo female known to me for invasive bladder cancer. SHe has had a previous radical cystectomy with ileal loop several years ago. SHe remains in remission. SHe recently was in the office because of "pyuria" She was feeling ok. the "pyuria" had stopped. A culture was obtained and is pending. She apparently had a syncoipal event after the office visit. She is feeling better now. Objective - Vital Signs Vital signs: Vital Signs Temp 98.0 F 05/11/24 02:00 Pulse 77 05/11/24 02:00 Resp 16 05/11/24 02:00 BP 157/83 05/11/24 02:00 Pulse Ox 95 05/11/24 02:00 FiO2 Intake & Output 05/10/24 05/11/24 05/11/24 18:59 06:59 18:59 Intake Total 240 590 Output Total 1500 900 Balance -1260 -310 Intake: Oral 240 590 Output: Urine 1500 900 - Labs CBC & Chem 7: 05/10/24 03:47 05/10/24 03:47 Labs: Abnormal Lab Results - Last 24 Hours (Table) 05/10/24 Range/Units 03:47 Sodium 133 L (135-145) mmol/L Carbon Dioxide 20.3 L (21.6-31.8) mmol/L Total Protein 6.0 L (6.2-8.2) g/dL Albumin 3.7 L (3.8-4.9) g/dL Assessment and Plan Assessment: Impression: syncope of indeterminate origin. "pyruia" with ileal loop s/p cystectomy. Kidney stones right. Recommendations: the pyruia was more than the usual debris seen in the urostomy bag in patient with and ileal loop Her WBC are normal and she is afebrile. SHe had a kub on 05/08 that didnt show any obvious ureteral stones but she did have a couple of very tiny right renal stones.. HEr labs are not c/w an obstructing ureteral stone with sepsis. when the culture is finalized I would send home on oral ab for 10 days and have her fu in the office. I cannot explain her syncope completely based on the urine infection however it obviously could contribute to the issue. I will see her in the office. Time with Patient: Greater than 30
[2024-05-11 12:48] VITALS: BP 156/76; PULSE 69; TEMP 98.1
--- NOTE | 2024-05-11 14:47 | P.PN ---
Subjective Progress Note Date: 05/11/24 May 11, 2024 The patient was seen and evaluated this morning. Currently she is asymptomatic and hemodynamically stable beside the pressure being consistent with stage II hypertension but I would avoid aggressive blood pressure control on her at this point. The echo showed normal LV systolic function with moderate aortic stenosis and moderate mitral regurgitation. Currently she is having an event mo nitor put in on. From the cardiovascular standpoint of view, the patient can be discharged home and follow-up with her primary computer forensics technician as an outpatient. The physical examination is remarkable for a crescendo-decrescendo murmur at the right upper sternal border with severe decrease in the intensity of S2 ASSESSMENT: Syncope Valvular heart disease as described above Intermittent second-degree type I heart block Urinary tract infection Hypertension Hyperlipidemia Hypothyroidism Plan Continue the current medical regimen The patient can be discharged home Objective - Vital Signs Vital signs: Vital Signs Temp 98.1 F 05/11/24 12:47 Pulse 69 05/11/24 12:47 Resp 16 05/11/24 12:47 BP 156/76 05/11/24 12:47 Pulse Ox 99 05/11/24 12:47 FiO2 Intake & Output 05/10/24 05/11/24 05/11/24 18:59 06:59 18:59 Intake Total 240 590 480 Output Total 1500 900 Balance -1260 -310 480 Intake: Oral 240 590 480 Output: Urine 1500 900 - Labs CBC & Chem 7: 05/10/24 03:47 05/10/24 03:47
== END 2024-05-11 17:12 | disposition home or self-care (01) ==
LOC: EC 15:22 → 5NMEDONC 18:06
PROVIDERS: ADMIT Internal Medicine; ATTEND Internal Medicine
DX: R55 Syncope and collapse (principal); N39.0 Urinary tract infection, site not specified; I08.0 Rheumatic disorders of both mitral and aortic valves; I44.1 Atrioventricular block, second degree; E03.9 Hypothyroidism, unspecified; E78.5 Hyperlipidemia, unspecified; I10 Essential (primary) hypertension; I25.10 Atherosclerotic heart disease of native coronary artery without angina pectoris; N20.0 Calculus of kidney; K21.9 Gastro-esophageal reflux disease without esophagitis; Z85.51 Personal history of malignant neoplasm of bladder; Z85.3 Personal history of malignant neoplasm of breast; Z93.6 Other artificial openings of urinary tract status; Z95.5 Presence of coronary angioplasty implant and graft; Z79.899 Other long term (current) drug therapy; Z79.890 Hormone replacement therapy; Z92.21 Personal history of antineoplastic chemotherapy; Z79.82 Long term (current) use of aspirin
CPT/HCPCS: 96361 ×3; 96366 ×4; 96372 ×2; 96365; 99285; 36415; 95816; 93005; 93270; 80053 ×3; 84443; 83735; 84484; 85025 ×3; 85610; 85730; 81001; 87086; 87077; 87186; 87636; 71046; 93880; 70450; 70553; G0378 ×4; C8929; J0696 ×4; J1650 ×2; Q9957; A9585; 93306

== ENCOUNTER → 2024-05-08 | Outpatient (CLI) | payer MEDICARE, BC ==
--- NOTE | 2024-05-08 13:43 | XR ---
EXAMINATION TYPE: XR KUB DATE OF EXAM: 05/08/2024 1:36 PM CLINICAL INDICATION: Female, 88 years old with history of N20.0 Calculus kidney, pain TECHNIQUE: 2 supine images of the abdomen. COMPARISON: Prior CT February 10, 2020. FINDINGS: Possible 3 mm left renal calculus at L3 level. No definitive right-sided nephrolithiasis bu t limitation from overlying colonic fecal debris. Surgical sutures overlie the right lower quadrant j ust above the sacroiliac joint. Ostomy near this level is redemonstrated. Cholecystectomy clips are r edemonstrated. There is overall nonobstructive bowel gas pattern. Overlying Arteriovascular calcifica tion is seen. Multilevel degenerative changes in the thoracolumbar spine is redemonstrated. IMPRESSION: As above. [facility], , 05/08/2024 1:40 PM
== END | disposition home or self-care (01) ==
LOC: RADXRMAIN 13:17
PROVIDERS: ATTEND Urology
DX: N20.0 Calculus of kidney (principal)
CPT/HCPCS: 74018